=== PATIENT | male | born 1970 | race Caucasian/White ===

== ENCOUNTER → 2018-06-07 12:53 | Outpatient (CLI) | payer BC, SELFPAY | PROVIDERS: Family Provider Family Medicine; PCP Family Medicine; Visit Provider Internal Medicine Cardiovascular Disease | DX: I25.10 Atherosclerotic heart disease of native coronary artery without angina pectoris (principal); I25.2 Old myocardial infarction; I25.5 Ischemic cardiomyopathy; Z98.61 Coronary angioplasty status | CPT/HCPCS: 93306 ==

== ENCOUNTER → 2019-02-12 | Outpatient (CLI) | payer BC, SELFPAY ==
[2019-02-12 15:45] VITALS: BMI 35.4
--- NOTE | 2019-02-12 16:46 | RAD_ITS ---
STUDY: X-RAY CHEST REASON FOR EXAM: Male, 48 years old. Pain TECHNIQUE: COMPARISON: None. FINDINGS: The lungs are clear and expanded. There is no demonstrated pleural abnormality. Normal size heart. Normal mediastinum and graciela. Normal visualized pulmonary arteries. Normal visualized aortic arch and descending thoracic aorta. Normal visualized thoracic spine. Surgical fusion of the visualized cervical levels. Normal visualized ribs, clavicles, and shoulders. There is no demonstrated abnormality of the visualized soft tissue structures of the upper abdomen. RAD/Chest PA and Lateral IMPRESSION: Normal x-ray examination of the chest. Electronically Signed: Carlos Fowler DO at 23:50 EDT Tel [phone], Service support ,
[2019-02-12 17:27] LABS: Absolute Lymphocyte Count 2.35 X10^3/ul (0.83-4.51); Absolute Neutrophil Count 4.7 X10^3/uL (2.0-7.7); Basophil# 0.04 X10^3/uL; Basophil% 0.5 % (0-1); Eosinophil# 0.26 X10^3/uL; Eosinophils% 3.1 % (0-5); Hematocrit 45.5 % (40-54); Hemoglobin 15.6 g/dl (13.0-16.5); Lymphocyte # 2.35 X10^3/ul (4.0); Lymphocyte % 28.1 % (19-41); Mean Corp Hgb Conc 34.3 g/gl (32-36); Mean Corpuscular Hgb 31.2 pg (27.0-32.0); Mean Platelet Vol. 10.1 fl (6.2-12.0); Monocyte# 0.97 X10^3/uL; Monocyte% 11.6 % (0-10); Neutrophil # 4.66 X10^3/uL (2.7-7.7); Neutrophil % 55.6 % (47-70); POSITIVE COUNT NO; POSITIVE DIFFERENTIAL NO; POSITIVE MORPHOLOGY NO; Platelet Count 198 K/mm3 (150-450); RBC Distribution Width CV 13.2 % (11.6-14.6); RBC Distribution Width SD 43.6 fl (35.1-43.9); White Blood Count 8.4 K/mm3 (4.4-11.0)
[2019-02-12 17:54] LABS: BNP,B-Type NATRIURETIC PEPTIDE 10.8 pg/mL (0-100)
[2019-02-12 17:58] LABS: Anion Gap 2 (5-15); BUN 10 mg/dL (7-18); BUN/Creat Ratio 12.2 RATIO (10-20); Chloride 109 mmol/L (98-107); Creatinine, Serum 0.82 mg/dL (0.70-1.30); EST Glomerular Filtration Rate 106 mL/min (>60); Est Glom Filt Rate - Afr Amer 129 mL/min (>60); Glucose 106 mg/dL (74-106); Potassium 3.7 mmol/L (3.5-5.1); Sodium Level 140 mmol/L (136-145); Thyroid Stim Hormone (TSH) 1.77 uIU/mL (0.358-3.74)
== END | disposition home or self-care (01) ==
PROVIDERS: Family Provider Family Medicine; PCP Family Medicine; Referring Provider Physician Assistant Medical; Visit Provider Physician Assistant Medical
DX: I25.5 Ischemic cardiomyopathy (principal); I25.10 Atherosclerotic heart disease of native coronary artery without angina pectoris; E78.5 Hyperlipidemia, unspecified; R06.09 Other forms of dyspnea; R53.83 Other fatigue
CPT/HCPCS: 36415; 71046; 80048; 83880; 84443; 85025

== ENCOUNTER → 2019-02-19 | Outpatient (CLI) | payer BC, SELFPAY ==
[2019-02-12 15:45] VITALS: BMI 35.4
--- NOTE | 2019-02-19 06:10 | ECHOD_ITS ---
Reason For Study: Dyspnea/SOB Procedure This was a 2D Doppler, Color Flow transthoracic echocardiogram. The exam was of adequate technical quality. Exam performed in department. Left Ventricle Borderline enlarged left ventricle. Mild segmental systolic dysfunction (see wall motion). The estimated ejection fraction is 50 %. No evidence for diastolic dysfunction. Infero-Basal: Hypokinetic. Mid-Posterior: Hypokinetic. Mid-Inferior: Hypokinetic. Right Ventricle Normal RV size. Normal systolic function. Atria Normal left atrium. Normal right atrium. No doppler evidence for ASD. Mitral Valve There is no mitral annular calcification. Normal mitral valve. Trivial mitral valve insufficiency. Tricuspid Valve Normal tricuspid valve. Trivial tricuspid valve insufficiency. Aortic Valve Trisinus/trileaflet aortic valve. Normal aortic valve. Pulmonic Valve The pulmonic valve is not well visualized. Great Vessels Normal sized aortic root. Pericardium/Pleural No pericardial effusion. MMode/2D Measurements & Calculations LVIDd: 5.3 cm IVSd: 0.87 cm Ao root diam: 3.8 cm LVIDs: 3.9 cm LVPWd: 1.2 cm LA dimension: 3.5 cm RVDd: 3.8 cm FS: 25.5 % LAV(MOD-bp): 55.6 ml LVAd ap4: 37.3 cm2 SV(MOD-sp4): 71.4 ml LAV(MOD-bp) Indexed: 24.9 ml/m2 EDV(MOD-sp4): 141.3 ml LAV(MOD-sp2): 62.1 ml EDV(sp4-el): 143.9 ml LAV(MOD-sp4): 47.5 ml LVAs ap4: 23.8 cm2 ESV(MOD-sp4): 69.9 ml ESV(sp4-el): 69.5 ml EF(MOD-sp4): 50.5 % EF(sp4-el): 51.7 % SV(sp4-el): 74.4 ml LA A4 area: 18.1 cm2 RA A4 area: 15.7 cm2 Time Measurements MV dec time: 0.09 sec Doppler Measurements & Calculations MV E max kevan: 84.1 cm/sec Lat Peak E' Kevan: 12.1 cm/sec Med Peak E' Kevan: 46.5 cm/sec MV A max kevan: 58.5 cm/sec E/E' lat: 7.0 E/E' med: 1.8 MV E/A: 1.4 MV V2 max: 88.6 cm/sec MV P1/2t max kevan: 88.0 cm/sec Ao V2 max: 118.1 cm/sec MV max P.1 mmHg MV P1/2t: 62.5 msec Ao max P.6 mmHg MV V2 mean: 52.9 cm/sec Ao V2 mean: 84.8 cm/sec MV mean P.3 mmHg MV dec slope: 412.4 cm/sec2 Ao mean P.2 mmHg MV V2 VTI: 26.1 cm MVA(P1/2t): 3.5 cm2 Ao V2 VTI: 25.3 cm LV V1 max: 74.3 cm/sec PA V2 max: 125.2 cm/sec LV V1 max P.2 mmHg LV V1 mean P.2 mmHg LV V1 mean: 51.7 cm/sec LV V1 VTI: 15.8 cm Interpretation Summary Borderline enlarged left ventricle. Mild segmental systolic dysfunction (see wall motion). The estimated ejection fraction is 50 %. Trivial mitral valve insufficiency. Trivial tricuspid valve insufficiency. No evidence for diastolic dysfunction. Ordering Physician: Shamar^Ruba Referring Physician: Ruba Ibanez Performed By: Eleazar Delarosa RCS
--- NOTE | 2019-02-19 10:18 | STRESSREP_ITS ---
Stress Test Report Date: 02-19-19 Procedure: Exercise tolerance test/imaging study Indications: Chest pain; shortness of breath/dyspnea; CAD; PCI Consent: Per the patient Procedure: The patient exercised on a Brian protocol for 11 minutes completing Stage III and 2 minutes of Stage IV achieving a peak heart rate of 145 bpm (85 % predicted maximal heart rate) with a peak blood pressure 170/70 mmHg and a peak MET capacity of 13 METs. The baseline ECG demonstrated normal sinus rhythm; nonspecific ST/T wave abnormality. The peak exercise ECG demonstrated continued nonspecific ST/T wave abnormality. There were occasional PVCs during exercise and recovery; occasional ventricular couplets during recovery; rare ventricular triplets during recovery; int ermittent ventricular bigeminy during recovery. The functional capacity was considered good. There was no complaint of chest discomfort during exercise or recovery. The examination was discontinued secondary to dyspnea. Impression: 1. Technically adequate (percent predicted maximal heart rate greater than 85%) exercise tolerance test 2. Peak exercise ECG continued nonspecific ST/T wave abnormality 3. There were occasional PVCs during exercise and recovery; occasional ventricular couplets during recovery; rare ventricular triplets during recovery; intermittent ventricular bigeminy during recovery 4. Nuclear images pending Myocardial perfusion imaging study: Technique: The patient was injected with 14.5 mCi of technetium 99m Cardiolite and subsequently rest SPECT Cardiolite nuclear imaging was obtained in the horizontal long, vertical long, and short axis views. The patient exercised on a Brian protocol for 11 minutes completing Stage III and 2 minutes of Stage IV achieving a peak heart rate of 145 bpm (85 % predicted maximal heart rate) with a peak blood pressure 170/70 mmHg and a peak MET capacity of 13 METs. The patient was injected with 44.7 mCi of technetium 99m Cardiolite and subsequently stress SPECT Cardiolite nuclear imaging was obtained in the horizontal long, vertical long, and short axis views. A gated Cardiolite study at peak stress was obtained. Interpretation: Rest and stress SPECT Cardiolite nuclear imaging status post realignment, normalization, and attenuation correction, demonstrates the appearance of extracardiac/gastrointestinal tracer uptake being more prominent at rest as opposed to stress. At rest and stress there is notation of diminished tracer uptake in portions of the basal inferior septal/basal inferior segments without significant change. Status post stress there is notation of diminished tracer uptake in portions of the mid inferior segments.. There is diminished and systolic thickening and brightening in the aforementioned areas. The gated Cardiolite study demonstrates diminished myocardial thickening and inward wall motion in the aforementioned areas. The reported LVEF is 48 %. Impression: 1. Rest and stress SPECT Cardiolite nuclear imaging demonstrate myocardial perfusion changes potentially compatible with the effects of soft tissue attenuation/artifact and/or gastrointestinal tracer uptake/retraction involving portions of the basal inferior septal and basal inferior segments, however, there are additional myocardial perfusion changes status post stress in the mid inferior areas concerning for an area of stress-induced myocardial ischemia. 2. The gated Cardiolite study reports an LVEF of 48 %. This note was generated with Education Every[employer] software. It may contain incorrect words, spelling, and punctuation that were not noted in checking the note before signing.
== END | disposition home or self-care (01) ==
LOC: CVS 06:09
PROVIDERS: Family Provider Family Medicine; PCP Family Medicine; Referring Provider Physician Assistant Medical; Visit Provider Physician Assistant Medical
DX: I25.10 Atherosclerotic heart disease of native coronary artery without angina pectoris (principal); I25.5 Ischemic cardiomyopathy; E78.5 Hyperlipidemia, unspecified; R06.09 Other forms of dyspnea; R53.83 Other fatigue
CPT/HCPCS: 78452; 93017; 93306; A9500; A4216

== ENCOUNTER 2019-02-20 06:41 | Day surgery (SDC) | payer BC, SELFPAY ==
[2019-02-12 15:45] VITALS: BMI 35.4
[2019-02-19 14:16] VITALS: BMI 35.4
[2019-02-20 07:08] LABS: International Normalized Ratio 1.1; Prothrombin Time (Protime)PT. 13.7 SECONDS (11.7-14.9)
[2019-02-20 07:09] LABS: Partial Thromboplast Time 29.2 Seconds (24.1-36.2)
--- NOTE | 2019-02-20 07:41 | PCM.HP.BLA ---
Problem List (1) Chest pain Status: Acute (2) Abnormal stress test Status: Acute (3) CAD (coronary artery disease) Status: Chronic Qualifiers: Coronary Disease-Associated Artery/Lesion type: platinum artery (4) Ischemic cardiomyopathy Status: Chronic (5) Presence of stent in coronary artery Status: Chronic Comment: PTCA/ALON x2 of the RCA 09/14/12 (6) Hyperlipidemia Status: Chronic Qualifiers: History and Physical Date of Admission: 02/20/19 HPI Details: This is a 48-year-old gentleman that presents here today for an urgent appointment. He has a history of coronary artery disease with remote stenting to his RCA, ischemic cardiomyopathy and hyperlipidemia. Pt sts that over the last month he has noted chest discomfort. He notes that he has shoulder discomfort with this. He also notes that when he is driving he has arm pain/ numbness and leg numbness. He also notes that he is more fatigued and has not been feeling over the last month. He does have some dizziness. He does have headaches. He has not had any syncope. He does have some edema, this is newer. It has gotten better and does improve after he has slept. 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 Accompanied by: Is patient in pain?: No Allergies No Known Allergies Allergy (Verified 02/12/19 15:49) Medications Aspirin [Aspirin, Baby] 81 mg PO DAILY@0800 10/24/13 [History Confirmed 02/12/19] Nitroglycerin [Nitrostat] 0.4 mg SUBLINGUAL Q5M PRN 10/24/13 [History Confirmed 02/12/19] atorvastatin 40 mg tablet 40 mg PO QDAY #90 tab 12/13/18 [Rx Confirmed 02/12/19] carvedilol 3.125 mg tablet 3.125 mg PO DAILY #180 tab 01/31/19 [Rx Confirmed 02/12/19] Ejection fraction %: 55 to 59 PFSH Medical History Ischemic cardiomyopathy (Chronic) Hyperlipidemia (Chronic) Old myocardial infarction (Acute ~2011) Atherosclerotic heart disease of platinum coronary artery without angina pectoris (Chronic) Surgical History Presence of stent in coronary artery (Chronic ~09/14/12) Postsurgical percutaneous transluminal coronary angioplasty (PTCA) status (Chronic ~09/14/12) History of spinal surgery (Chronic ~2013) Vocal cord polyp (Resolved) Family History Father CAD (coronary artery disease) Myocardial infarction, Onset Age: 50 Diabetes Uncle CAD (coronary artery disease) Myocardial infarction, Onset Age: 50 Grandfather CAD (coronary artery disease) Myocardial infarction, Onset Age: 44 Uncle Heart disease 2 heart transplants Social History Smoking Status: Current every day smoker tobacco type: cigars per week: 28 alcohol intake: former year quit: 2006 details: Heavy drinker in the past substance use type: does not use caffeine: Yes Type: coffee Number of servings: 1 ROS Const Const: Positive for fatigue; negative for weakness, fever(s) or headache(s) Eyes Eyes: Negative for blind spots, loss of peripheral vision or transient loss of vision ENT ENT: Negative for headache(s), dizziness, tinnitus or Nosebleed/epistaxis Cardio Chest Pain: Yes Palpitations: No Edema: None Muscle aches with walking: None Resp Respiratory: Positive for SOB with activity; negative for SOB at rest, SOB orthopnea\SOB lying down or Cough GI GI: Negative nausea, vomiting, heartburn or vomiting blood/hematemesis : Negative for hematuria Musc Musc: Negative for muscle aches/ myalgia Neuro Neuro: Negative for dizziness, lightheadedness, near syncope, syncope, orthostatic symptoms, headache(s) or weakness [place] Hematologic/Lymphatic: Negative for easy bleeding Endo Endo: Positive for fatigue Cardiology Exam Const Appearance: cooperative, no acute distress and well developed Orientation: alert, awake and oriented x3 Head Head: normocephalic and atraumatic Mouth: moist mucous membranes Eyes General: appearance normal, both eyes and all related structures Conjunctivae: conjunctivae normal Pupils: PERRL EOM: EOM intact bilaterally Neck Neck: normal visual inspection, no lymphadenopathy and no JVD Carotids: Negative bruit Neck Mass: Negative Neck mass Chest Chest inspection: normal inspection of the chest and symmetric chest movement Auscultation: Bilateral: Clear to Auscultation Cardio Palpation: normal PMI Rate: regular rate Rhythm: regular rhythm Heart sounds: S1 normal and S2 normal; negative rub, gallop or murmur GI GI: normal to inspection, soft, no hepatosplenomegaly and bowel sounds present; negative tender Neuro General: alert, awake, oriented x3, CN's II-XI intact bilaterally and moves all extremities Extremities Pulses: Normal: Right Posterior Tibial Pulse, Left Posterior Tibial Pulse, Right Radial Pulse, Left Radial Pulse Lower Extremity Edema: None: Bilateral Psych Psychological: normal affect Assessment & Plan 1. Atherosclerosis of platinum coronary artery of platinum heart without angina pectoris I25.10 Plan With patient's concern over chest pain and shortness of breath will obtain a stress test to evaluate for underlying ischemia. Orders Orders: 12 Lead EKG performed by [facility] 02/12/19 Basic Metabolic Profile (BMP) 02/12/19 Thyroid Stim Hormone (TSH) 02/12/19 CBC W/Diff, Automated 02/12/19 BNP,B-Type NATRIURETIC PEPTIDE 02/12/19 Echo Complete 02/12/19 Nuclear Stress Test - Treadmil 02/12/19 Chest PA and Lateral 02/12/19 2. Hyperlipidemia, unspecified hyperlipidemia type E78.5 Plan Patient will continue with current moderate intensity statin. Orders Orders: 12 Lead EKG performed by [facility] 02/12/19 Basic Metabolic Profile (BMP) 02/12/19 Thyroid Stim Hormone (TSH) 02/12/19 CBC W/Diff, Automated 02/12/19 BNP,B-Type NATRIURETIC PEPTIDE 02/12/19 Echo Complete 02/12/19 Nuclear Stress Test - Treadmil 02/12/19 Chest PA and Lateral 02/12/19 3. Cardiomyopathy, ischemic I25.5 Plan With patient's history of cardiomyopathy will obtain an echocardiogram to reevaluate his shortness of breath, chest pain and fatigue. We will also obtain a chest x-ray. Orders Orders: 12 Lead EKG performed by [facility] 02/12/19 Basic Metabolic Profile (BMP) 02/12/19 Thyroid Stim Hormone (TSH) 02/12/19 CBC W/Diff, Automated 02/12/19 BNP,B-Type NATRIURETIC PEPTIDE 02/12/19 Echo Complete 02/12/19 Nuclear Stress Test - Treadmil 02/12/19 Chest PA and Lateral 02/12/19 4. Dyspnea on exertion R06.09 Plan Obtaining a chest x-ray and labs, echocardiogram and stress test to evaluate for patient's shortness of breath, chest pain and fatigue. Orders Orders: 12 Lead EKG performed by [facility] 02/12/19 Basic Metabolic Profile (BMP) 02/12/19 Thyroid Stim Hormone (TSH) 02/12/19 CBC W/Diff, Automated 02/12/19 BNP,B-Type NATRIURETIC PEPTIDE 02/12/19 Echo Complete 02/12/19 Nuclear Stress Test - Treadmil 02/12/19 5. Fatigue, unspecified type R53.83 Plan Obtaining labs, stress test and echocardiogram. Orders Orders: 12 Lead EKG performed by [facility] 02/12/19 Basic Metabolic Profile (BMP) 02/12/19 Thyroid Stim Hormone (TSH) 02/12/19 CBC W/Diff, Automated 02/12/19 BNP,B-Type NATRIURETIC PEPTIDE 02/12/19 Echo Complete 02/12/19 Nuclear Stress Test - Treadmil 02/12/19 Plan Detail Other Orders Orders: Chest PA and Lateral 02/12/19 R06.00 Additional Comments Thank you for allowing us to participate in patient's plan of care, if you have any questions please do not hesitate to call. This note was generated using a voice recognition system and there may be incorrect words, spelling or punctuation errors that were not noted when reviewing the office note prior to saving. Follow Up 02/14/19 (keep as is) Coding Level of Care Code Off vis,est,level 3 Diagnoses Atherosclerosis of platinum coronary artery of platinum heart without angina pectoris I25.10 ??[place] vs. transplanted heart: platinum heart Hyperlipidemia, unspecified hyperlipidemia type E78.5 ??Hyperlipidemia type: unspecified Cardiomyopathy, ischemic I25.5 Dyspnea on exertion R06.09 Fatigue, unspecified type R53.83 ??Fatigue type: unspecified Coding Level of Care Code Off vis,est,level 3 Diagnoses Atherosclerosis of platinum coronary artery of platinum heart without angina pectoris I25.10 ??[place] vs. transplanted heart: platinum heart Hyperlipidemia, unspecified hyperlipidemia type E78.5 ??Hyperlipidemia type: unspecified Cardiomyopathy, ischemic I25.5 Dyspnea on exertion R06.09 Fatigue, unspecified type R53.83 ??Fatigue type: unspecified Supplemental Info Supplemental Information Echocardiogram in January 2018 demonstrated:Segmental dysfunction with preserved ejection fraction (see wall motion). The estimated ejection fraction is 55 %. Trivial mitral valve insufficiency. Trivial tricuspid valve insufficiency. Mild (1+) pulmonic valve insufficiency. Transmitral doppler flow suggestive of impaired relaxation of left ventricle Diagnostics Electrocardiogram 02/12/19 Echocardiogram 06/07/18 Chest X-Ray 02/12/19 I have examined the patient the following changes are noted: The patient has undergone further evaluation with a transthoracic echocardiogram and a stress nuclear imaging study. The transthoracic echocardiogram demonstrated left ventricular regional wall motion abnormalities with an estimated LVEF of approximately 50%. The stress nuclear imaging study demonstrated concerns of stress-induced myocardial ischemia. The patient's case was reviewed. The patient was recommended for further evaluation with diagnostic cardiac catheterization. The procedure and risks were discussed with the patient and he was agreeable to this approach. This is scheduled to be performed on 5 minutes ??19.
--- NOTE | 2019-02-20 07:46 | HP.PCM_ITS ---
Problem List (1) Chest pain Status: Acute (2) Abnormal stress test Status: Acute (3) CAD (coronary artery disease) Status: Chronic Qualifiers: Coronary Disease-Associated Artery/Lesion type: [place] artery (4) Ischemic cardiomyopathy Status: Chronic (5) Presence of stent in coronary artery Status: Chronic Comment: PTCA/ALON x2 of the RCA 09/14/12 (6) Hyperlipidemia Status: Chronic Qualifiers: History and Physical Date of Admission: 02/20/19 HPI Details: This is a 48-year-old gentleman that presents here today for an urgent appointment. He has a history of coronary artery disease with remote stenting to his RCA, ischemic cardiomyopathy and hyperlipidemia. Pt sts that over the last month he has noted chest discomfort. He notes that he has shoulder discomfort with this. He also notes that when he is driving he has arm pain/ numbness and leg numbness. He also notes that he is more fatigued and has not been feeling over the last month. He does have some dizziness. He does have headaches. He has not had any syncope. He does have some edema, this is newer. It has gotten better and does improve after he has slept. Intake Vital Signs 02/12/19 Height 5 ft 9 in 02/12/19 Weight: 240 lb 02/12/19 Body Mass Index (BMI) 35.4 02/12/19 Blood Pressure 112/74 02/12/19 Blood Pressure Location Lt brachial 02/12/19 Blood Pressure Position Sitting 02/12/19 Respiratory Rate 16 02/12/19 Pulse Rate 76 02/12/19 Pulse Source Monitor Intake Visit Reasons: CP Fowl Blood Tester Required: No Accompanied by: Is patient in pain?: No Allergies No Known Allergies Allergy (Verified 02/12/19 15:49) Medications Aspirin [Aspirin, Baby] 81 mg PO DAILY@0800 10/24/13 [History Confirmed 02/12/19] Nitroglycerin [Nitrostat] 0.4 mg SUBLINGUAL Q5M PRN 10/24/13 [History Confirmed 02/12/19] atorvastatin 40 mg tablet 40 mg PO QDAY #90 tab 12/13/18 [Rx Confirmed 02/12/19] carvedilol 3.125 mg tablet 3.125 mg PO DAILY #180 tab 01/31/19 [Rx Confirmed 02/12/19] Ejection fraction %: 55 to 59 PFSH Medical History Ischemic cardiomyopathy (Chronic) Hyperlipidemia (Chronic) Old myocardial infarction (Acute ~2011) Atherosclerotic heart disease of [place] coronary artery without angina pectoris (Chronic) Surgical History Presence of stent in coronary artery (Chronic ~09/14/12) Postsurgical percutaneous transluminal coronary angioplasty (PTCA) status (Chronic ~09/14/12) History of spinal surgery (Chronic ~2013) Vocal cord polyp (Resolved) Family History Father CAD (coronary artery disease) Myocardial infarction, Onset Age: 50 Diabetes Uncle CAD (coronary artery disease) Myocardial infarction, Onset Age: 50 Grandfather CAD (coronary artery disease) Myocardial infarction, Onset Age: 44 Uncle Heart disease 2 heart transplants Social History Smoking Status: Current every day smoker tobacco type: cigars per week: 28 alcohol intake: former year quit: 2006 details: Heavy drinker in the past substance use type: does not use caffeine: Yes Type: coffee Number of servings: 1 ROS Const Const: Positive for fatigue; negative for weakness, fever(s) or headache(s) Eyes Eyes: Negative for blind spots, loss of peripheral vision or transient loss of vision ENT ENT: Negative for headache(s), dizziness, tinnitus or Nosebleed/epistaxis Cardio Chest Pain: Yes Palpitations: No Edema: None Muscle aches with walking: None Resp Respiratory: Positive for SOB with activity; negative for SOB at rest, SOB orthopnea\SOB lying down or Cough GI GI: Negative nausea, vomiting, heartburn or vomiting blood/hematemesis : Negative for hematuria Musc Musc: Negative for muscle aches/ myalgia Neuro Neuro: Negative for dizziness, lightheadedness, near syncope, syncope, orthostatic symptoms, headache(s) or weakness [place] Hematologic/Lymphatic: Negative for easy bleeding Endo Endo: Positive for fatigue Cardiology Exam Const Appearance: cooperative, no acute distress and well developed Orientation: alert, awake and oriented x3 Head Head: normocephalic and atraumatic Mouth: moist mucous membranes Eyes General: appearance normal, both eyes and all related structures Conjunctivae: conjunctivae normal Pupils: PERRL EOM: EOM intact bilaterally Neck Neck: normal visual inspection, no lymphadenopathy and no JVD Carotids: Negative bruit Neck Mass: Negative Neck mass Chest Chest inspection: normal inspection of the chest and symmetric chest movement Auscultation: Bilateral: Clear to Auscultation Cardio Palpation: normal PMI Rate: regular rate Rhythm: regular rhythm Heart sounds: S1 normal and S2 normal; negative rub, gallop or murmur GI GI: normal to inspection, soft, no hepatosplenomegaly and bowel sounds present; negative tender Neuro General: alert, awake, oriented x3, CN's II-XI intact bilaterally and moves all extremities Extremities Pulses: Normal: Right Posterior Tibial Pulse, Left Posterior Tibial Pulse, Right Radial Pulse, Left Radial Pulse Lower Extremity Edema: None: Bilateral Psych Psychological: normal affect Assessment & Plan 1. Atherosclerosis of [place] coronary artery of [place] heart without angina pectoris I25.10 Plan With patient's concern over chest pain and shortness of breath will obtain a stress test to evaluate for underlying ischemia. Orders Orders: 12 Lead EKG performed by [facility] 02/12/19 Basic Metabolic Profile (BMP) 02/12/19 Thyroid Stim Hormone (TSH) 02/12/19 CBC W/Diff, Automated 02/12/19 BNP,B-Type NATRIURETIC PEPTIDE 02/12/19 Echo Complete 02/12/19 Nuclear Stress Test - Treadmil 02/12/19 Chest PA and Lateral 02/12/19 2. Hyperlipidemia, unspecified hyperlipidemia type E78.5 Plan Patient will continue with current moderate intensity statin. Orders Orders: 12 Lead EKG performed by [facility] 02/12/19 Basic Metabolic Profile (BMP) 02/12/19 Thyroid Stim Hormone (TSH) 02/12/19 CBC W/Diff, Automated 02/12/19 BNP,B-Type NATRIURETIC PEPTIDE 02/12/19 Echo Complete 02/12/19 Nuclear Stress Test - Treadmil 02/12/19 Chest PA and Lateral 02/12/19 3. Cardiomyopathy, ischemic I25.5 Plan With patient's history of cardiomyopathy will obtain an echocardiogram to reevaluate his shortness of breath, chest pain and fatigue. We will also obtain a chest x-ray. Orders Orders: 12 Lead EKG performed by [facility] 02/12/19 Basic Metabolic Profile (BMP) 02/12/19 Thyroid Stim Hormone (TSH) 02/12/19 CBC W/Diff, Automated 02/12/19 BNP,B-Type NATRIURETIC PEPTIDE 02/12/19 Echo Complete 02/12/19 Nuclear Stress Test - Treadmil 02/12/19 Chest PA and Lateral 02/12/19 4. Dyspnea on exertion R06.09 Plan Obtaining a chest x-ray and labs, echocardiogram and stress test to evaluate for patient's shortness of breath, chest pain and fatigue. Orders Orders: 12 Lead EKG performed by [facility] 02/12/19 Basic Metabolic Profile (BMP) 02/12/19 Thyroid Stim Hormone (TSH) 02/12/19 CBC W/Diff, Automated 02/12/19 BNP,B-Type NATRIURETIC PEPTIDE 02/12/19 Echo Complete 02/12/19 Nuclear Stress Test - Treadmil 02/12/19 5. Fatigue, unspecified type R53.83 Plan Obtaining labs, stress test and echocardiogram. Orders Orders: 12 Lead EKG performed by [facility] 02/12/19 Basic Metabolic Profile (BMP) 02/12/19 Thyroid Stim Hormone (TSH) 02/12/19 CBC W/Diff, Automated 02/12/19 BNP,B-Type NATRIURETIC PEPTIDE 02/12/19 Echo Complete 02/12/19 Nuclear Stress Test - Treadmil 02/12/19 Plan Detail Other Orders Orders: Chest PA and Lateral 02/12/19 R06.00 Additional Comments Thank you for allowing us to participate in patient's plan of care, if you have any questions please do not hesitate to call. This note was generated using a voice recognition system and there may be incorrect words, spelling or punctuation errors that were not noted when reviewing the office note prior to saving. Follow Up 02/14/19 (keep as is) Coding Level of Care Code Off vis,est,level 3 Diagnoses Atherosclerosis of [place] coronary artery of [place] heart without angina pectoris I25.10 ??[place] vs. transplanted heart: [place] heart Hyperlipidemia, unspecified hyperlipidemia type E78.5 ??Hyperlipidemia type: unspecified Cardiomyopathy, ischemic I25.5 Dyspnea on exertion R06.09 Fatigue, unspecified type R53.83 ??Fatigue type: unspecified Coding Level of Care Code Off vis,est,level 3 Diagnoses Atherosclerosis of [place] coronary artery of [place] heart without angina pectoris I25.10 ??[place] vs. transplanted heart: [place] heart Hyperlipidemia, unspecified hyperlipidemia type E78.5 ??Hyperlipidemia type: unspecified Cardiomyopathy, ischemic I25.5 Dyspnea on exertion R06.09 Fatigue, unspecified type R53.83 ??Fatigue type: unspecified Supplemental Info Supplemental Information Echocardiogram in January 2018 demonstrated:Segmental dysfunction with preserved ejection fraction (see wall motion). The estimated ejection fraction is 55 %. Trivial mitral valve insufficiency. Trivial tricuspid valve insufficiency. Mild (1+) pulmonic valve insufficiency. Transmitral doppler flow suggestive of impaired relaxation of left ventricle Diagnostics Electrocardiogram 02/12/19 Echocardiogram 06/07/18 Chest X-Ray 02/12/19 I have examined the patient the following changes are noted: The patient has undergone further evaluation with a transthoracic echocardiogram and a stress nuclear imaging study. The transthoracic echocardiogram demonstrated left ventricular regional wall motion abnormalities with an estimated LVEF of approximately 50%. The stress nuclear imaging study demonstrated concerns of stress-induced myocardial ischemia. The patient's case was reviewed. The patient was recommended for further evaluation with diagnostic cardiac catheterization. The procedure and risks were discussed with the patient and he was agreeable to this approach. This is scheduled to be performed on 5 minutes ??19.
--- NOTE | 2019-02-20 09:53 | CL.D_ITS ---
Patient Name: ANDREW BROOKS Study Date: 02/20/2019 Performing: Fernando Wilkinson MD Ht: 68.89 inches 175 cm : 1970 Wt: 240.3 lbs 109 kg Age: 48 Gender: male BSA: 2.23 PROCEDURE(S) PERFORMED [id number]-DTJ/COR/LV CLINICAL PROFILE AND INDICATIONS Indications: Suspected CAD, LV Dysfunction, Cardiomyopathy Heart Failure: None Stress/Imaging Date: 02/19/2019Stress Test with SPECT MPI: Positive Angina Classification Anginal Classification w/in 2 Weeks: CCS II CAD Presentations: Stable angina. CONCLUSIONS Elevated Left Ventricular End Diastolic Pressure Segmented LV systolic dysfunction- Mild LVEF: by LV gram 45 % RCA: PCI site: Patent RECOMMENDATIONS Risk factor modification Medical therapy DESCRIPTION OF PROCEDURE The patient arrived to the procedure lab. The risks and benefits of the procedure as well as a full d escription of our services here and current unavailability of surgical backup were fully explained to the patient and/or their significant other prior to the catheterization. The Timeout was completed, verifying the correct patient and procedure. The patient's procedural site was prepped and draped in the usual fashion. Local anesthetic was given subcutaneously to right groin region with Lidocaine 2%. Using a modified Seldinger technique, arterial access was obtained via the right femoral artery, a 4 Fr sheath was inserted Left Coronary Artery selective angiography was performed in multiple views us ing a 4 Fr. JL5 catheter. Right Coronary Artery selective angiography was then performed in multiple views using a 4 Fr. 3DRC catheter. Left Ventriculography was performed in [place] projection using a 4 Fr . Pigtail catheter. LV to AO pullback pressures were then recorded.The arterial sheath was pulled and manual compression applied until hemostasis is achieved. CORONARY ANGIOGRAPHY LEFT HEART ASSESSMENT Left Ventricular Ejection Fraction: by LV Gram 45 % Inferior Basal Hypokinesis. Inferior Mid Akinesis. Inferior Apical Hypokinesis Elevated Left Ventricular End Diastolic Pressure LEFT MAIN: Angiographically normal LEFT ANTERIOR DESCENDING ARTERY: Angiographically normal CIRCUMFLEX ARTERY: PROX CIRC: Mild luminal irregularities OM 1: Ostial - short small caliber vessel: 50 % Stenosis RAMUS: Angiographically normal RIGHT CORONARY ARTERY: PROX RCA: Previously placed stent is patent MID RCA: Previously placed stent is patent VALVE FINDINGS: Normal Aortic Valve function Normal Mitral Valve function AORTIC ROOT: Angiographically normal COMPLICATIONS No Complications PROCEDURE MEDICATIONS Versed 1 mg IV Oxygen: 2 L/min via nasal cannula SUMMARY OF HEMODYNAMIC DATA Time AIR REST ECG 07:10:18 AO 129/63 (85) SA 08:33:05 LV 122/8, 28 08:53:16 LV 122/8, 26 08:53:23 LV 122/8, 35 08:54:16 LV 124/6, 30 08:54:23 LVp 119/4, 26 08:54:44 AOp 132/72 (94) 08:54:49 RM AIR REST 09:25:16 Signed By Fernando Wilkinson MD On 02/20/2019 09:52:40 Fernando Wilkinson MD
== END 2019-02-20 13:30 | disposition home or self-care (01) ==
PROVIDERS: Family Provider Family Medicine; PCP Family Medicine; Referring Provider Internal Medicine Cardiovascular Disease; Visit Provider Internal Medicine Cardiovascular Disease
DX: I25.10 Atherosclerotic heart disease of native coronary artery without angina pectoris (principal); R94.39 Abnormal result of other cardiovascular function study; I25.5 Ischemic cardiomyopathy; E78.5 Hyperlipidemia, unspecified; I25.2 Old myocardial infarction; Z95.5 Presence of coronary angioplasty implant and graft; Z79.82 Long term (current) use of aspirin; Z79.899 Other long term (current) drug therapy; F17.290 Nicotine dependence, other tobacco product, uncomplicated
CPT/HCPCS: 36415; 85610; 85730; 93458; 99152; 99153; J7040; C1769; C1894; Q9967

== ENCOUNTER → 2019-02-24 | Outpatient (CLI) | payer BC, SELFPAY ==
[2019-02-19 14:16] VITALS: BMI 35.4
== END | disposition home or self-care (01) ==
LOC: PSN 10:50
PROVIDERS: Family Provider Family Medicine; PCP Family Medicine; Referring Provider Internal Medicine Cardiovascular Disease; Visit Provider Internal Medicine Cardiovascular Disease
DX: I25.10 Atherosclerotic heart disease of native coronary artery without angina pectoris (principal); I25.2 Old myocardial infarction; I25.5 Ischemic cardiomyopathy; I49.3 Ventricular premature depolarization; Z95.5 Presence of coronary angioplasty implant and graft
CPT/HCPCS: 93225; 93226

== ENCOUNTER → 2019-03-20 | Outpatient (CLI) | payer BC, SELFPAY ==
[2019-03-07 13:18] VITALS: BMI 35.2
--- NOTE | 2019-03-20 13:39 | PFT ---
INTRODUCTION: The patient is a 48-year-old male who presents for pulmonary function studies secondary to a diagnosis of shortness of breath. Respiratory therapy reports good patient effort. Bronchodilators were used during testing. INTERPRETATION: Forced expiration spirometry demonstrates no evidence of a large airways obstructive ventilatory defect. There was no significant response to aerosolized bronchodilators, based upon strict ATS criteria. The patient did have a rather robust mid flow bronchodilator response, nonetheless. Spirograms are of good quality and do not plateau indicating slow emptying of the lungs. Body plethysmography was performed and reveals lung volumes to be within normal limits. Diffusing capacity by single breath CO is also within normal limits. IMPRESSION: Subtle stigmata of possible small airways disease. Normal spirometry, lung volumes and diffusing capacity.
== END | disposition home or self-care (01) ==
LOC: PSN 06:58
PROVIDERS: Family Provider Family Medicine; PCP Family Medicine; Referring Provider Internal Medicine Cardiovascular Disease; Visit Provider Internal Medicine Cardiovascular Disease
DX: R06.02 Shortness of breath (principal)
CPT/HCPCS: 94060; 94726; 94729

== ENCOUNTER → 2019-04-14 | Outpatient (CLI) | payer BC, SELFPAY ==
[2019-04-01 10:55] VITALS: BMI 35.1
== END | disposition home or self-care (01) ==
LOC: SL 13:40
PROVIDERS: Family Provider Family Medicine; PCP Family Medicine; Referring Provider Nurse Practitioner Acute Care; Visit Provider Nurse Practitioner Acute Care
DX: G47.33 Obstructive sleep apnea (adult) (pediatric) (principal)
CPT/HCPCS: 95806

== ENCOUNTER → 2019-05-05 | Outpatient (CLI) | payer BC, SELFPAY ==
[2019-04-01 10:55] VITALS: BMI 35.1
== END | disposition home or self-care (01) ==
LOC: SL 11:01
PROVIDERS: Family Provider Family Medicine; PCP Family Medicine; Visit Provider Nurse Practitioner Acute Care
DX: G47.33 Obstructive sleep apnea (adult) (pediatric) (principal)

== ENCOUNTER → 2019-08-07 15:32 | Outpatient (CLI) | payer BC, SELFPAY ==
[2019-05-29 13:15] VITALS: BMI 35.1
== END ==
PROVIDERS: Family Provider Family Medicine; PCP Family Medicine; Referring Provider Nurse Practitioner Acute Care; Visit Provider Nurse Practitioner Acute Care
DX: G47.33 Obstructive sleep apnea (adult) (pediatric) (principal)
CPT/HCPCS: 98960; G0463

== ENCOUNTER → 2020-03-30 09:08 | Outpatient (CLI) | payer BC, SELFPAY ==
[2020-02-03 07:44] VITALS: BMI 35.7
[2020-03-30 11:07] LABS: AST(SGOT) 24 U/L (15-37); Alanine Aminotransfer ALT/SGPT 37 U/L (16-61); Albumin, Serum 3.9 g/dL (3.2-5.0); Alkaline Phosphatase 49 U/L (45-117); Bilirubin, Direct 0.21 mg/dL (0.00-0.30); Cholesterol 182 mg/dL (200); Globulin 3.5 g/dL (2.2-4.2); High Density Lipoprotein 39 mg/dL; Protein, Total 7.4 g/dL (6.4-8.2); Triglycerides 120 mg/dL; Very Low Density Lipoprotein 24 mg/dL (5-40)
== END ==
PROVIDERS: PCP Family Medicine; Referring Provider Nurse Practitioner Family; Visit Provider Nurse Practitioner Family
DX: E78.5 Hyperlipidemia, unspecified (principal); E78.00 Pure hypercholesterolemia, unspecified
CPT/HCPCS: 36415; 80061; 80076

== ENCOUNTER → 2020-12-10 12:39 | Outpatient (CLI) | payer SELFPAY ==
[2020-11-26 13:28] VITALS: BMI 32.1
--- NOTE | 2020-12-10 12:43 | ART_ITS ---
Reason For Study: Cold feet Procedure A bilateral lower extremity continuous wave Doppler with analog waveform analysis,segmental pressures,and ankle brachial indexes without exercise. Left Segmental Pressures Left brachial= 116mmHg. Left posterior tibial artery = 137mmHg. Left dorsalis pedis artery = 132mmHg. Left digit = 83 mmHg. The left dorsalis pedis waveforms are triphasic. The left posterior tibial artery waveforms are triphasic. Right Segmental Pressures Right brachial= 121mmHg. Right posterior tibial artery = 144mmHg. Right dorsalis pedis artery = 130mmHg. Right digit = 89 mmHg. The right dorsalis pedis waveforms are triphasic. The right posterior tibial artery waveforms are triphasic. Indices The right ankle brachial index by the dorsalis pedis is 1.07. The right ankle brachial index by the posterior tibial artery is 1.19. The right digital-brachial index is 0.74. The left ankle brachial index by the dorsalis pedis is 1.09. The left ankle brachial index by the posterior tibial artery is 1.13. The left digital-brachial index is 0.69. Interpretation Summary Resting ankle-brachial indices appear bilaterally normal. Normal bilateral lower extremity posterior tibialis and dorsalis pedis triphasic Doppler waveforms Borderline abnormal bilateral digital brachial indices of 0.74 on the right and 0.69 on the left. Possible temperature effect. Clinical correlation would be appropriate. Ordering Physician: Fernando Wilkinson Referring Physician: Saravanan Chavarria MD Performed By: Bety Oates RVT
== END ==
PROVIDERS: PCP Family Medicine; Referring Provider Internal Medicine Cardiovascular Disease; Visit Provider Internal Medicine Cardiovascular Disease
DX: R20.9 Unspecified disturbances of skin sensation (principal)
CPT/HCPCS: 93923

== ENCOUNTER → 2021-03-11 06:38 | Outpatient (CLI) | payer OTHER, SELFPAY ==
[2021-01-25 08:51] VITALS: BMI 31.6
[2021-03-11 10:38] LABS: AST(SGOT) 23 U/L (15-37); Alanine Aminotransfer ALT/SGPT 36 U/L (16-61); Alkaline Phosphatase 49 U/L (45-117); Bilirubin, Direct 0.15 mg/dL (0.00-0.30); Cholesterol 180 mg/dL (200); Globulin 3.3 g/dL (2.2-4.2); High Density Lipoprotein 41 mg/dL; Protein, Total 7.3 g/dL (6.4-8.2); Triglycerides 111 mg/dL; Very Low Density Lipoprotein 22 mg/dL (5-40)
--- NOTE | 2021-03-11 12:10 | STRESSREP_ITS ---
Stress Test Report Date: 03-11-2021 Procedure: Exercise tolerance test/imaging study Indications: CAD; PCI; [employer] CDL requirement Consent: Per the patient Procedure: The patient exercised on a Brian protocol for 10 minutes and 30 seconds completing Stage III and 1 minute and 30 seconds of Stage IV achieving a peak heart rate of 142 bpm (84% predicted maximal heart rate) with a peak blood pressure 150/72 mmHg and a peak MET capacity of 12 METs. The baseline ECG demonstrated sinus bradycardia. The peak exercise ECG demonstrated somatic/motion artifact with no obvious ECG changes. There was a rare to occasional PVC during exercise and recovery. The functional capacity was considered good. There was no complaint of chest discomfort during exercise or recovery. The examination was discontinued secondary to dyspnea. Impression: 1. Technically adequate (percent predicted maximal heart rate greater than 85%) exercise tolerance test 2. Peak exercise ECG with somatic/motion artifact with no obvious ECG changes 3. There was a rare to occasional PVC during exercise and recovery 4. Nuclear images pending Myocardial perfusion imaging study: Technique: The patient was injected with 14.3 mCi of technetium 99m Cardiolite and subsequently rest SPECT Cardiolite nuclear imaging was obtained in the horizontal long, vertical long, and short axis views. The patient exercised on a Brian protocol for 10 minutes and 30 seconds completing Stage III and 1 minute and 30 seconds of Stage IV achieving a peak heart rate of 142 bpm (84% predicted maximal heart rate) with a peak blood pressure 150/72 mmHg and a peak MET capacity of 12 METs. The patient was injected with 45.0 mCi of technetium 99m Cardiolite and subsequently stress SPECT Cardiolite nuclear imaging was obtained in the horizontal long, vertical long, and short axis views. A gated Cardiolite study at peak stress was obtained. Interpretation: Rest and stress SPECT Cardiolite nuclear imaging status post realignment, normalization, and attenuation correction, demonstrates the appearance at rest of relative uniform tracer uptake and following stress the appearance of diminished tracer uptake in portions of the mid inferior segments. There is diminished end systolic thickening and brightening. The gated Cardiolite study demonstrates myocardial thickening and inward wall motion. The reported LVEF is 49%. Impression: 1. Rest and stress SPECT Cardiolite nuclear imaging demonstrate myocardial perfusion changes concerning for an area of stress-induced myocardial ischemia in portions of the mid inferior segments. 2. The gated Cardiolite study reports an LVEF of 49%. This note was generated with [employer] software. It may contain incorrect words, spelling, and punctuation that were not noted in checking the note before signing.
== END ==
PROVIDERS: PCP Family Medicine; Referring Provider Internal Medicine Cardiovascular Disease; Visit Provider Internal Medicine Cardiovascular Disease
DX: I25.10 Atherosclerotic heart disease of native coronary artery without angina pectoris (principal); Z95.5 Presence of coronary angioplasty implant and graft; I25.2 Old myocardial infarction; R94.39 Abnormal result of other cardiovascular function study; E78.5 Hyperlipidemia, unspecified; E78.00 Pure hypercholesterolemia, unspecified
CPT/HCPCS: 36415; 78452; 80061; 80076; 93017; A9500; A4216

== ENCOUNTER 2021-03-23 09:52 | Observation (INO) | payer OTHER, SELFPAY ==
[2021-01-25 08:51] VITALS: BMI 31.6
[2021-03-16 15:14] VITALS: BMI 31.4
--- NOTE | 2021-03-16 16:10 | RAD_ITS ---
STUDY: X-RAY CHEST REASON FOR EXAM: Male, 50 years old. Chest pain TECHNIQUE: PA and lateral views of the chest. COMPARISON: Comparison is made with prior examination dated 02/12/2019. FINDINGS: Hyperinflation. The lungs are clear. There is no demonstrated pleural abnormality. Normal size heart. Normal mediastinum and graciela. Normal visualized pulmonary arteries. Normal visualized aortic arch and descending thoracic aorta. Normal visualized thoracic spine. Prior cervical fusion. There is no demonstrated abnormality of the visualized soft tissue structures of the upper abdomen. RAD/Chest PA and Lateral IMPRESSION: Hyperinflation. The lungs are clear. Electronically Signed: Humberto Deutsch MD at 8:53 EDT , Service support ,
[2021-03-16 17:21] LABS: Absolute Lymphocyte Count 1.56 X10^3/uL (0.83-4.51); Absolute Neutrophil Count 4.5 X10^3/uL (2.0-7.7); Basophil# 0.09 X10^3/uL; Basophil% 1.2 % (0-1); Eosinophil# 0.29 X10^3/uL; Hematocrit 45.4 % (40-54); Hemoglobin 15.1 g/dL (13.0-16.5); Lymphocyte # 1.56 X10^3/ul (0.83-4.51); Lymphocyte % 21.5 % (19-41); Mean Corp Hgb Conc 33.3 g/dL (32-36); Mean Corpuscular Hgb 30.4 pg (27.0-32.0); Mean Corpuscular Volume 91.5 fL (80-94); Mean Platelet Vol. 9.6 fl (6.2-12.0); Monocyte# 0.72 X10^3/uL; Monocyte% 9.9 % (0-10); NRBC Flagged by Analyzer 0 % (0-5); Neutrophil # 4.49 X10^3/uL (2.7-7.7); Neutrophil % 61.9 % (47-70); Platelet Count 224 K/mm3 (150-450); RBC Distribution Width SD 40.4 fl (35.1-43.9); Red Blood Count 4.96 M/mm3 (4.6-6.2); White Blood Count 7.3 K/mm3 (4.4-11.0)
[2021-03-16 18:01] LABS: Anion Gap 6 (5-15); BUN 17 mg/dL (7-18); BUN/Creat Ratio 19.9 RATIO (10-20); Calcium,Total 9.1 mg/dL (8.5-10.1); Chloride 103 mmol/L (98-107); Creatinine, Serum 0.86 mg/dL (0.70-1.30); EST Glomerular Filtration Rate 100 mL/min (>60); Est Glom Filt Rate - Afr Amer 121 mL/min (>60); Glucose 82 mg/dL (74-106); Potassium 3.9 mmol/L (3.5-5.1); Sodium Level 139 mmol/L (136-145)
[2021-03-16 18:32] LABS: International Normalized Ratio 1.1; Prothrombin Time (Protime)PT. 13.5 SECONDS (11.7-14.9)
[2021-03-16 18:33] LABS: Partial Thromboplast Time 30.1 Seconds (24.1-36.2)
[2021-03-22 08:37] VITALS: BMI 31.4
[2021-03-23] VITALS (13 sets, daily range): BP systolic 99–129; BP diastolic 63–87; PULSE 56–74; RESP 8–18; TEMP 36.4–37; O2SAT 95–100
--- NOTE | 2021-03-23 07:16 | PCM.HP.BLA ---
History and Physical Date of Admission: 03/23/21 [facility] [id number] [place], [place] [id number] OFFICE VISITDate of Service: 03/16/21 MR#:[id number]:[id number]: ANDREW BROOKS HRep #:[id number] Provider:Dr. Fernando Wilkinson, SYDNEEge/Sex: 50/M Location:Treus:Signed HPI HPI History of Present Illness Surgical H&P: Yes Details: This is a 50-year-old white male who presents today for outpatient cardiovascular follow-up with history of CAD status post RCA PTCA/stent-2011, ischemic mediated cardiomyopathy, hyperlipidemia, and MARGY for concerns of chest discomfort and an abnormal stress nuclear imaging study. He states that he has been tearing down his home in order to rebuild his home. He has been under a lot of stress. He states that he has had some chest tightness which he believes is stress related. He has not used his nitroglycerin sublingual tablets. He has not had any orthopnea or PND or peripheral pitting edema. There has been no near syncope or syncope. He recently underwent evaluation with an exercise tolerance test/imaging study. The results are noted below. It was considered abnormal. 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 Accompanied by: Self Allergies No Known Allergies Allergy (Verified 03/16/21 15:20) Medications aspirin 81 mg PO DAILY@0800 10/24/13 [History Confirmed 03/16/21] nitroglycerin 0.4 mg sublingual tablet 0.4 mg SUBLINGUAL Q5M PRN #25 tab 03/02/19 [Rx Confirmed 03/16/21] metoprolol succinate 25 mg tablet,extended release 24 hr 12.5 mg PO DAILY tab 04/14/20 [History Confirmed 03/16/21] atorvastatin 40 mg tablet 40 mg PO QDAY #90 tab 07/02/20 [Rx Confirmed 03/16/21] clopidogrel 75 mg tablet 75 mg PO DAILY #30 tab 03/16/21 [Rx Confirmed 03/16/21] [facility] Medical History (Updated 03/16/21 @ 16:[address] Fernando Wilkinson MD) Abnormal pulmonary function test Abnormal stress test Atherosclerotic heart disease of [place] coronary artery without angina pectoris BMI 34.0-34.9,adult Chest pain Cold feet Hyperlipidemia Ischemic cardiomyopathy Neuropathy Old myocardial infarction (~2011) MARGY (obstructive sleep apnea) Surgical History History of spinal surgery (~2013) Postsurgical percutaneous transluminal coronary angioplasty (PTCA) status (~09/14/12) Presence of stent in coronary artery (~09/14/12) Vocal cord polyp Family History Father CAD (coronary artery disease) Myocardial infarction, Onset Age: 50 Diabetes Uncle CAD (coronary artery disease) Myocardial infarction, Onset Age: 50 Grandfather CAD (coronary artery disease) Myocardial infarction, Onset Age: 44 Uncle Heart disease 2 heart transplants Social History Smoking Status: Former smoker alcohol intake: former year quit: 2006 details: Heavy drinker in the past substance use type: does not use caffeine: Yes Type: coffee Number of servings: 1 ROS Const Const: Negative for fatigue, weakness, frequent falls, excessive sweating, weight gain or weight loss Eyes Eyes: Negative for transient loss of vision, blurry vision or change in vision ENT ENT: Positive for balance problems (due to chronic back pain); Negative for dizziness Cardio Chest Pain: No Palpitations: No Edema: None Muscle aches with walking: None Resp Respiratory: Negative for SOB with activity or SOB at rest GI GI: Negative vomiting or vomiting blood/hematemesis : Negative for hematuria Musc Musc: Positive for muscle aches/ myalgia (chronic back pain) and balance problems (due to chronic back pain); Negative for muscle weakness or joint pain Skin Skin: Negative non-healing lesions or rash Neuro Neuro: Negative for dizziness, lightheadedness, orthostatic symptoms, frequent falls, weakness or blurry vision [place] Hematologic/Lymphatic: Negative for easy bleeding Endo Endo: Negative for fatigue or excessive sweating Psych Psych: Negative for anxiety or depression Allergy Allergy/Immunology: Negative for hives and Negative for rash Cardiology Exam Const Appearance: cooperative, healthy appearing, comfortable, no acute distress, well developed and well groomed Nutritional Appearance: overweight Orientation: alert, awake and oriented x3 Head Head: normal to inspection, normocephalic and atraumatic Ears: hearing grossly normal bilaterally Nose: external nose normal Face and Sinus: face symmetric Eyes Eyelids: eyelids normal Conjunctivae: conjunctivae normal Pupils: PERRL EOM: EOM intact bilaterally Neck Neck: normal visual inspection and full ROM Carotids: normal carotid upstroke Chest Chest inspection: normal inspection of the chest, symmetric chest movement and normal respiratory effort Auscultation: Bilateral: Clear to Auscultation Cardio Palpation: normal PMI Rate: regular rate Rhythm: regular rhythm Heart sounds: S1 normal and S2 normal GI GI: normal to inspection, soft and bowel sounds present Neuro General: patient alert, patient awake, patient oriented x3 and moves all extremities Skin Skin: no rashes or lesions noted Extremities Pulses: Normal: Right Radial Pulse and Left Radial Pulse Lower Extremity Edema: None: Bilateral Psych Psychological: normal affect Assessment and Plan Assessment and Plan (1) Atherosclerotic heart disease of [place] coronary artery without angina pectoris: Status: Chronic Qualifiers: [place] vs. transplanted heart: [place] heart Qualified Code(s): I25.10 - Atherosclerotic heart disease of [place] coronary artery without angina pectoris Orders: Orders: Left Heart Cath/COR/LV Percut Today Basic Metabolic Profile (BMP) Today Partial Thromboplast Time Today Prothrombin Time w/INR Today CBC W/Diff, Automated Today Chest PA and Lateral Today Plan - Dr. Fernando Wilkinson MD: At the present time he will continue medical therapy. Was felt that he should be reassessed in the cardiac catheterization laboratory. The procedure and risk were discussed with him. He was agreeable to this approach. (2) Postsurgical percutaneous transluminal coronary angioplasty (PTCA) status: Status: Chronic Comment: PTCA/ALON of the RCA 09/14/12 Orders: Orders: Left Heart Cath/COR/LV Percut Today Basic Metabolic Profile (BMP) Today Partial Thromboplast Time Today Prothrombin Time w/INR Today CBC W/Diff, Automated Today Chest PA and Lateral Today Plan - Dr. Fernando Wilkinson MD: He has undergone previous PCI in the past. Again he has had symptoms and an abnormal stress test. He will proceed with further evaluation with diagnostic cardiac catheterization. (3) Ischemic cardiomyopathy: Status: Chronic Orders: Orders: Left Heart Cath/COR/LV Percut Today Basic Metabolic Profile (BMP) Today Partial Thromboplast Time Today Prothrombin Time w/INR Today CBC W/Diff, Automated Today Chest PA and Lateral Today Plan - Dr. Fernando Wilkinson MD: He does have a history of an ischemic mediated cardiomyopathy. He does not appear to have any obvious CHF type symptoms at this time. He will continue evaluation care as noted. (4) Hyperlipidemia: Status: Chronic Qualifiers: Hyperlipidemia type: unspecified Qualified Code(s): E78.5 - Hyperlipidemia, unspecified Orders: Orders: Left Heart Cath/COR/LV Percut Today Basic Metabolic Profile (BMP) Today Partial Thromboplast Time Today Prothrombin Time w/INR Today CBC W/Diff, Automated Today Chest PA and Lateral Today Plan - Dr. Fernando Wilkinson MD: His lipid labs from 03-11-2020 were reviewed. His total cholesterol was 180 with an LDL of 117 and HDL 41. His triglycerides were 111. He will continue medical management and follow-up. (5) Chest pain, unspecified: Status: Acute Plan - Dr. Fernando Wilkinson MD: His chest discomfort, tightness, is concerning for underlying cardiovascular disease. Thus based upon his history and his ongoing findings it is reasonable to reassess him in the cardiac catheterization laboratory. (6) Abnormal stress test: Status: Acute Orders: Orders: Left Heart Cath/COR/LV Percut Today Basic Metabolic Profile (BMP) Today Partial Thromboplast Time Today Prothrombin Time w/INR Today CBC W/Diff, Automated Today Chest PA and Lateral Today Plan - Dr. Fernando Wilkinson MD: He did have an abnormal stress nuclear imaging study as noted. Based upon his history it has been recommended he undergo further evaluation with diagnostic cardiac catheterization. The procedure and risks were discussed with him and he was agreeable to this approach. Plan Details Other Medications: New: clopidogrel (Plavix) 4 tablets (300 mg by mouth) on Day 1 then 1 tablet (75 mg by mouth) a day starting on Day 2 75 mg PO DAILY 30 tabs 1RF Additional Comments: The above was discussed with him and he was agreeable to this approach. Thank you for allowing me to participate in the care of your patient. Please don't hesitate to call if any issues arise. This note was generated using a voice recognition system and there may be incorrect words, spelling or punctuation that were not noted when reviewing the office note prior to saving. Follow Up: 6 Months (with PFM) COVID (Procedure Consent) Procedure Criteria Procedure Criteria: Yes Elective The surgeon/proceduralist and patient have discussed in detail the risk of exposure to and/or potential harm posed by the COVID-19 virus with having a surgery/procedure at this time versus the risk of delaying the surgery/procedure. It is not possible to know either the risk of delaying the surgery or procedure or chance of getting an infection with perfect accuracy, but a joint decision was made between the patient and the surgeon/proceduralist to proceed at this time with the scheduled surgery/procedure as indicated on the consent form. Coding Level of Care Code Off vis,est,level 5 Diagnoses Atherosclerotic heart disease of [place] coronary artery without angina pectoris I25.10 [place] vs. transplanted heart: [place] heart Postsurgical percutaneous transluminal coronary angioplasty (PTCA) status Z98.61 Ischemic cardiomyopathy I25.5 Hyperlipidemia E78.5 Hyperlipidemia type: unspecified Chest pain, unspecified R07.9 Abnormal stress test R94.39 Coding Level of Care Code Off vis,est,level 5 Diagnoses Atherosclerotic heart disease of [place] coronary artery without angina pectoris I25.10 [place] vs. transplanted heart: [place] heart Postsurgical percutaneous transluminal coronary angioplasty (PTCA) status Z98.61 Ischemic cardiomyopathy I25.5 Hyperlipidemia E78.5 Hyperlipidemia type: unspecified Chest pain, unspecified R07.9 Abnormal stress test R94.39 Supplemental Info Supplemental Information Transthoracic echocardiogram: 02-19-19 Interpretation Summary Borderline enlarged left ventricle. Mild segmental systolic dysfunction (see wall motion). The estimated ejection fraction is 50 %. Trivial mitral valve insufficiency. Trivial tricuspid valve insufficiency. No evidence for diastolic dysfunction. Stress Test Report Date: 02-19-19 Procedure: Exercise tolerance test/imaging study Indications: Chest pain; shortness of breath/dyspnea; CAD; PCI Consent: Per the patient Procedure: The patient exercised on a Brian protocol for 11 minutes completing Stage III and 2 minutes of Stage IV achieving a peak heart rate of 145 bpm (85 % predicted maximal heart rate) with a peak blood pressure 170/70 mmHg and a peak MET capacity of 13 METs. The baseline ECG demonstrated normal sinus rhythm; nonspecific ST/T wave abnormality. The peak exercise ECG demonstrated continued nonspecific ST/T wave abnormality. There were occasional PVCs during exercise and recovery; occasional ventricular couplets during recovery; rare ventricular triplets during recovery; intermittent ventricular bigeminy during recovery. The functional capacity was considered good. There was no complaint of chest discomfort during exercise or recovery. The examination was discontinued secondary to dyspnea. Impression: 1. Technically adequate (percent predicted maximal heart rate greater than 85%) exercise tolerance test 2. Peak exercise ECG continued nonspecific ST/T wave abnormality 3. There were occasional PVCs during exercise and recovery; occasional ventricular couplets during recovery; rare ventricular triplets during recovery; intermittent ventricular bigeminy during recovery 4. Nuclear images pending Myocardial perfusion imaging study: Technique: The patient was injected with 14.5 mCi of technetium 99m Cardiolite and subsequently rest SPECT Cardiolite nuclear imaging was obtained in the horizontal long, vertical long, and short axis views. The patient exercised on a Brian protocol for 11 minutes completing Stage III and 2 minutes of Stage IV achieving a peak heart rate of 145 bpm (85 % predicted maximal heart rate) with a peak blood pressure 170/70 mmHg and a peak MET capacity of 13 METs. The patient was injected with 44.7 mCi of technetium 99m Cardiolite and subsequently stress SPECT Cardiolite nuclear imaging was obtained in the horizontal long, vertical long, and short axis views. A gated Cardiolite study at peak stress was obtained. Interpretation: Rest and stress SPECT Cardiolite nuclear imaging status post realignment, normalization, and attenuation correction, demonstrates the appearance of extracardiac/gastrointestinal tracer uptake being more prominent at rest as opposed to stress. At rest and stress there is notation of diminished tracer uptake in portions of the basal inferior septal/basal inferior segments without significant change. Status post stress there is notation of diminished tracer uptake in portions of the mid inferior segments.. There is diminished and systolic thickening and brightening in the aforementioned areas. The gated Cardiolite study demonstrates diminished myocardial thickening and inward wall motion in the aforementioned areas. The reported LVEF is 48 %. Impression: 1. Rest and stress SPECT Cardiolite nuclear imaging demonstrate myocardial perfusion changes potentially compatible with the effects of soft tissue attenuation/artifact and/or gastrointestinal tracer uptake/retraction involving portions of the basal inferior septal and basal inferior segments, however, there are additional myocardial perfusion changes status post stress in the mid inferior areas concerning for an area of stress-induced myocardial ischemia. 2. The gated Cardiolite study reports an LVEF of 48 %. Stress Test Report Date: 03-11-2021 Procedure: Exercise tolerance test/imaging study Indications: CAD; PCI; [employer] CDL requirement Consent: Per the patient Procedure: The patient exercised on a Brian protocol for 10 minutes and 30 seconds completing Stage III and 1 minute and 30 seconds of Stage IV achieving a peak heart rate of 142 bpm (84% predicted maximal heart rate) with a peak blood pressure 150/72 mmHg and a peak MET capacity of 12 METs. The baseline ECG demonstrated sinus bradycardia. The peak exercise ECG demonstrated somatic/motion artifact with no obvious ECG changes. There was a rare to occasional PVC during exercise and recovery. The functional capacity was considered good. There was no complaint of chest discomfort during exercise or recovery. The examination was discontinued secondary to dyspnea. Impression: 1. Technically adequate (percent predicted maximal heart rate greater than 85%) exercise tolerance test 2. Peak exercise ECG with somatic/motion artifact with no obvious ECG changes 3. There was a rare to occasional PVC during exercise and recovery 4. Nuclear images pending Myocardial perfusion imaging study: Technique: The patient was injected with 14.3 mCi of technetium 99m Cardiolite and subsequently rest SPECT Cardiolite nuclear imaging was obtained in the horizontal long, vertical long, and short axis views. The patient exercised on a Brian protocol for 10 minutes and 30 seconds completing Stage III and 1 minute and 30 seconds of Stage IV achieving a peak heart rate of 142 bpm (84% predicted maximal heart rate) with a peak blood pressure 150/72 mmHg and a peak MET capacity of 12 METs. The patient was injected with 45.0 mCi of technetium 99m Cardiolite and subsequently stress SPECT Cardiolite nuclear imaging was obtained in the horizontal long, vertical long, and short axis views. A gated Cardiolite study at peak stress was obtained. Interpretation: Rest and stress SPECT Cardiolite nuclear imaging status post realignment, normalization, and attenuation correction, demonstrates the appearance at rest of relative uniform tracer uptake and following stress the appearance of diminished tracer uptake in portions of the mid inferior segments. There is diminished end systolic thickening and brightening. The gated Cardiolite study demonstrates myocardial thickening and inward wall motion. The reported LVEF is 49%. Impression: 1. Rest and stress SPECT Cardiolite nuclear imaging demonstrate myocardial perfusion changes concerning for an area of stress-induced myocardial ischemia in portions of the mid inferior segments. 2. The gated Cardiolite study reports an LVEF of 49%. Cardiac catheterization: 02-20-19 CORONARY ANGIOGRAPHY LEFT HEART ASSESSMENT Left Ventricular Ejection Fraction: by LV Gram 45 % Inferior Basal Hypokinesis. Inferior Mid Akinesis. Inferior Apical Hypokinesis Elevated Left Ventricular End Diastolic Pressure LEFT MAIN: Angiographically normal LEFT ANTERIOR DESCENDING ARTERY: Angiographically normal CIRCUMFLEX ARTERY: PROX CIRC: Mild luminal irregularities OM 1: Ostial - short small caliber vessel: 50 % Stenosis RAMUS: Angiographically normal RIGHT CORONARY ARTERY: PROX RCA: Previously placed stent is patent MID RCA: Previously placed stent is patent VALVE FINDINGS: Normal Aortic Valve function Normal Mitral Valve function AORTIC ROOT: Angiographically normal Labs: LDL Cholesterol 117 mg/dL (0-130) HDL Cholesterol 41 mg/dL (40-) Triglycerides 111 mg/dL (-199) VLDL Cholesterol 22 mg/dL (5-40) Diagnostics: Electrocardiogram Echocardiogram Stress Test NM Stress Test Cardiac Catheterization Chest X-Ray Pulmonary: Pulmonary Function Test 03/16/21 1611<Electronically signed by Fernando Wilkinson MD>Date Fernando Wilkinson MD Cosigner Signature:Date (if applicable) CC: Dr. Saravanan Chavarria MD ~ I have re-examined the patient. There are no clinical changes since date of exam.
--- NOTE | 2021-03-23 10:30 | EKG12_ITS ---
Test Reason : POST PCI Blood Pressure : / mmHG Vent. Rate : 056 BPM Atrial Rate : 056 BPM P-R Int : 200 ms QRS Dur : 102 ms QT Int : 434 ms P-R-T Axes : 067 074 034 degrees QTc Int : 418 ms Sinus bradycardia Otherwise normal ECG When compared with ECG of 24-OCT-2013 16:23, No significant change was found Confirmed by JOSE J THORNTON, BOY ([id number]), web content editor JUAQUIN BLANCA ([id number]) on 03/29/2021 9:14:51 AM Referred By: Fernando Wilkinson Confirmed By:BOY LUX MD
[2021-03-23] MEDS: Metoprolol(XL)Succ 25 MG Tablet PO (11:17)
[2021-03-23] MEDS: 0.9% Normal Saline 1,000 ML 75 ML IV (11:17)
--- NOTE | 2021-03-23 11:59 | PRO.PCM_ITS ---
Procedure Report Date of Procedure: 03/23/21 Procedure performed; 1. Left heart catheterization 2. Selective coronary angiography 3. Measurement of LVEDP 4. Left ventriculogram 5. Moderate sedation 6. Placement of TR band to maintain hemostasis for the right radial arteriotomy site. Preprocedure diagnosis; 50-year-old patient, presented to ED, [facility] yesterday with symptoms of chest pain which progressively worsening. Associated with symptoms of shortness of breath. This has been a chronic symptom for the last 2 months and patient is a cement truck driver and he noted his symptoms is progressively more severe with retrosternal chest pain typical of angina aggravated with exertion and walking and relieved with rest. Patient had history of hypertension he has no prior cardiac history. Cardiac evaluation he had cardiac exam with abnormal electrocardiogram showing ST-T change in the anterolateral leads. The cardiac biomarkers with troponins were negative. Patient treated with medical therapy with aspirin heparin, beta-veronica and statin atorvastatin, patient has abnormal echocardiogram which showed severe LV systolic dysfunction ejection fraction in the range of 15-20%, moderately enlarged left atrium and moderate to severe MR. Based on the clinical presentation patient underwent cardiac catheterization today. Consent; Risk and benefit of the procedure explained in detail to the patient elected to proceed and informed consent obtained. Moderate sedation; Type of anesthesia; moderate anesthesia Patient was given 1 mg of Versed and 50 mcg of fentanyl. Diagnostic catheter used; 1. Approach right radial artery approach with placement of 6 Cymraes Terumo sheath 2. Patient was given a cocktail of 3000 units of heparin, 2.5 verapamil, 200 mcg of nitroglycerin 3. We used 5 Cymraes JL 3.5, 5 Cymraes JR4, 5 Cymraes pigtail catheter. Procedure in detail; Under fluoroscopic guidance we will proceed with the 5 Cymraes JL 3.5 advanced ascending aorta, cannulate the left main coronary artery without difficulty, multiple views of the left coronary system obtained including [place], [place] cranial and caudal views. Following this catheter exchanged for 5 Cymraes JR4 catheter and selective angiographic view of the right carotid system were obtained including [place] cranial and caudal views The same catheter used across aortic valve and then placed the 5 Cymraes pigtail catheter and interventricular obtained 30 degree [place] projection using a total of 30 cc of contrast And measurement of LVEDP Following this pullback pressure recorded Hemodynamic; Severe LV systolic dysfunction ejection fraction in the range of 20-25% with global LV hypokinesia, +2?+3 mitral regurgitation noted No systolic gradient across aortic valve Coronary angiography findings; 1. Left main calcified, bifurcating into LAD and the left circumflex The left main is short, angiographically no significant atherosclerosis of the left main noted. 2. Proximal LAD calcified 50% stenosis, followed by diffuse mid LAD 90% s tenosis. Distal LAD had no significant atherosclerosis with good distal targets for bypass Collaterals from the apical portion of the LAD to the right coronary artery/RPDA 3. Ostial diagonal 90% stenosis/moderate size vessel. 4. Proximal left circumflex had diffuse 80% stenosis 5. Bifurcation of OM1/left circumflex 90% large vessel. 6. Right coronary artery mid subtotal with the distal RCA subtotal and collateralization from the left coronary system to the RCA. The RCA is a small to moderate-sized vessel. Conclusion and plan; This patient has a chronic symptoms of angina shortness of breath Medical history history of hypertension no history of diabetes. He has severe multivessel coronary artery disease with severe LV systolic dysfunction Moderate to severe mitral regurgitation 1. We will transfer the patient for evaluation by CV surgeon for CABG/ELISSA guided mitral valve surgery 2. Medical therapy with beta-veronica carvedilol, lisinopril, aspirin, atorvasta tin, diuretic as needed and Aldactone. #3 plan of cardiac care and finding explained in detail to the patient and he agreed for transfer for evaluation for bypass surgery. Nakita Luna MD,FACC,[facility]
--- NOTE | 2021-03-23 12:15 | PCIREPORT_ITS ---
PCI Cardiac Cath Report PCI Report: Procedure performed; 1. Successful percutaneous core intervention of high-grade 90% stenosis of the distal RCA with predilatation and placement of drug-eluting stent/Orsiro 3 x 22 mm, postdilated with 3.5 x 15 mm NC balloon and reduction of stenosis to 0% with maintenance of ALVARADO-3 flow pre and post procedure. 2. Placement of TR band to close the right radial artery arteriotomy site. Indication; 50-year-old patient with CAD, prior PCI and stent of RCA in 2011. Seen and evaluated by his primary editor publications Dr. Wilkinson for stable angina, with nuclear stress test which is abnormal and underwent cardiac catheterization The angiographic findings discussed and reviewed Patient had mild nonobstructive atherosclerosis of sidebranch the diagonal as well as the left circumflex He has patent RCA stent with high-grade 90% stenosis in the distal RCA which is a large dominant vessel. Patient has mild LV systolic dysfunction with ejection fraction of 45% with inferobasal hypokinesia. Consent; Risk and benefit of the procedure explained in detail to the patient, informed consent obtained Interventional equipment; 1. 6 Croatian JR4 guide 2. 0.014 run-through wire, 180 cm 3. 2.5 x 15 mm regular balloon 4. Drug-eluting stent/Orsiro 3 x 22 mm 5. NC balloon/emerge 3.5 x 15 mm Procedure in detail; We will proceed with 6 [place]ian JR4 guide under fluoroscopic guidance, engaged the right coronary ostium without difficulty Angiographic views were obtained in GER[place] and [place] views, patient was given heparin a total of 8000 international unit and also he was given 300 mg of Plavix he has been on aspirin and Plavix. Then will proceed with a wire across the lesion in the distal RCA, followed by balloon dilatation using 2.5 x 15 mm balloon Then followed by placement of a drug-eluting stent 3 x 22 mm/Orsiro, followed by postdilatation using 3.5 x 15 mm NC balloon and achievement of excellent result with no dissection or complication. ACT level is accepted above 250. Following this all catheter removed Hemostasis maintained with placement of TR band to right radial artery arteriotomy site. Conclusion and recommendations; Patient has high-grade stenosis of the distal RCA underwent successful percutaneous coronary intervention and placement of a drug-eluting stent to the distal RCA Patient to continue on dual antiplatelet therapy/DAPT Plavix and aspirin for 1 year and aspirin low-dose indefinitely. Post procedure findings discussed with the patient and the primary editor publications Dr. Wilkinson, patient will follow up for continuation of cardiac care Phase 1 cardiac rehab has been recommended. Nakita Luna MD,FACC,[facility]
--- NOTE | 2021-03-23 12:20 | PCI.CARDCATH ---
PCI Cardiac Cath Report PCI Report: Procedure performed; Successful PCI of high-grade 90% distal RCA stenosis with predilatation and placement of a drug-eluting stent Orsiro 3 x 22 mm, postdilated with 3.5 x 15 mm NC balloon with reduction of stenosis to 0% and maintaining ALVARADO-3 flow pre and post procedure. Successful placement of TR band to close the right radial artery arteriotomy site. Preprocedure diagnosis 50-year-old patient with history of CAD status post PCI and stent of RCA in 2011 Patient also has a history of hypertension, obstructive sleep apnea He had symptoms of chest pain with abnormal nuclear stress test and also had a history of prior myocardial infarction. This patient underwent cardiac catheterization today by his primary reservoir engineering consultant Dr. Wilkinson, angiographic films reviewed and discussed He has nonobstructive atherosclerosis involving the left coronary system left circumflex artery and ostial of a diagonal Patient LV systolic function is preserved and he had severe high-grade stenosis distal to the RCA stent involving the distal RCA which is large vessel, dominant Consent; Risk and benefit of the procedure explained in detail to the patient elected to proceed informed consent obtained. Patient has been already on Plavix and aspirin, he was given additional 300 mg of Plavix in the Veterinary Laboratory Diagnostician Anticoagulation use in this case is heparin and maintain ACT level above 250 he was given a total of 8000 of heparin in addition to 3000 of heparin was given through the right radial artery sheath by Dr. Wilkinson. Interventional equipment and catheters 1. 6 Polish, JR4 guide catheter 2. 0.014 guide wire 180 cm. 3. 2.5 x 15 mm balloon 4. Drug-eluting stent/Orsiro 3 x 22 mm 5. 3.5 x 15 mm NC balloon Procedure in detail; E proceed with 6 Polish JR4 guide advanced ascending aorta under fluoroscopic guidance, engaged the right coronary ostium without difficulty Angiographic view obtained, then will proceed with run-through wire across the lesion in the distal RCA, followed by predilatation using 2.5 x 15 mm balloon, followed by placement of a drug-eluting stent 3 x 22 mm, and then will proceed with postdilatation using 3.5 x 50 mm NC balloon and achievement of excellent result with no complication. Conclusion and recommendation; Successful percutaneous core intervention of high-grade distal RCA stenosis with placement of drug eluting stent as a specified. Placement of TR band to close right radial artery arteriotomy site with no complication in the Veterinary Laboratory Diagnostician Patient to continue on dual antiplatelet therapy/DAPT with Plavix and aspirin for 1 year And patient will follow up with the primary reservoir engineering consultant Dr. Wilkinson for continuation of cardiac care plan. Nakita Luna MD,FACC,[facility]
--- NOTE | 2021-03-23 14:11 | CRPHASE1_ITS ---
Patient Communication Former Patient:: Phase I PHII Cardiac Rehab Discussed with Patient:: Yes Guide to Cardiac Rehab Given to Patient:: Yes Cardiac Rehab Facility Choice List Given to Patient:: Yes Choice Program [facility] CR PHII:: Communication Given to CR Choice Program Other:: Communication Given to CR [employer] Counselor:: JOVANI Beal Phase II Cardiac Rehab:: Yes Sessions:: 36 sessions - 3 days/wk, 12 weeks Cardiac Rehabilitation Info Cardiac Rehabilitation Program Information: Cardiac Rehabilitation is important for patients like you who are recovering from a heart problem. Cardiac rehabilitation programs are recognized as integral to the continued care of the patient with coronary heart disease. The cardiac rehabilitation program is designed to optimize a patient's physical, psychological, and social functioning. Health animal care attendant work in cardiac rehabilitation programs and assist you with getting the treatments you need to get stronger and healthier - like exercise, healthy eating habits, and medications. Cardiac rehabilitation has been show to help people with heart problems live longer and have better life enjoyment than people who do not go to cardiac rehabilitation. Please contact the Cardiac Rehabilitation Program at [facility] at in two weeks if you have not heard from them.
--- NOTE | 2021-03-23 14:12 | CRPH1.INSTRU ---
General Education CAD and cardiac anatomy and function:: Patient communicates acknowledgment Explanation of diagnoses and procedures:: Patient communicates acknowledgment Sign/Symptoms of KS:: Patient communicates acknowledgment Antiplatelet therapy: Patient communicates acknowledgment Smoking Recommendations Include:: Previous smoker; encourage continued cessation Nicotine/Smoking Response Code:: Patient communicates acknowledgment Dyslipidemia Patient Dyslipidemia Risk Factors Are:: Total Cholesterol, Triglycerides, LDL Recommendations Include:: Lipid profile provided, Reviewed NCEP/ATP guidelines, Therapeutic Lifestyle Change dietary guidelines Dyslipidemia Response Code:: Patient communicates acknowledgment Overweight/Obesity Patient Overweight/Obesity Risk Factors Are:: BMI Normal [18-25 & < 65 years old], Obesity - > or = 30 Recommendations Include:: Weight loss of 5-10%, Reduced calorie diet, Exercise 5-7 times/week Overweight/Obesity:: Patient communicates acknowledgment Hypertension Patient Hypertension Risk Factors Are:: No documented hx of HTN Heart Disease Patient Heart Disease Risk Factors Are:: Previous cardiac event Heart Disease Response Code:: Patient communicates acknowledgment Diabetes Patient Diabetes Risk Factors Are:: No documented hx of diabetes Sedentary Patient Sedentary Risk Factors Are:: Lack of regular exercise Recommendations Include:: Aerobic exercise 5-7 times/week for 20-30 minutes continuously, Benefits of regular exercise, Discussed home walking program, Monitored Outpatient Cardiac Rehab Sedentary Response Code:: Patient communicates acknowledgment Stress Patient Stress Risk Factors Are:: Patient denies stress as a risk factor Recommendations Include:: Identification of stressors, and assessment of coping skills, Stress management techniques Stress Response Code:: Patient communicates acknowledgment
--- NOTE | 2021-03-23 16:31 | CASEMGMT ---
Insurance review for hospitals In-network with [facility] Insurance [facility], [place], [place], [facility], [facility] ([facility]), and . Tad BSN RN CM
--- NOTE | 2021-03-23 16:32 | CL.D_ITS ---
Patient Name: ANDREW BROOKS Study Date: 03/23/2021 Performing: Fernando Wilkinson MD Ht: 70 inches 178 cm : 1970 Wt: 218.5 lbs 99 kg Age: 50 Gender: male BSA: 2.17 PROCEDURE(S) PERFORMED FD59-GGE/COR/LV CG70-IDS W OR WO PTCA, SINGLE CORONARY ARTERY CLINICAL PROFILE AND INDICATIONS Indications: Worsening Angina, Other Heart Failure: None Stress/Imaging Date: 03/11/2021tress Test with SPECT MPI: Positive Intermediate Risk Angina Classification Anginal Classification w/in 2 Weeks: CCS III CAD Presentations: Stable angina. CONCLUSIONS Elevated Left Ventricular End Diastolic Pressure Segmented LV systolic dysfunction- Mild LVEF: by LV gram 45 % [place] Multivessel CAD RCA: stents: patent RECOMMENDATIONS Medical therapy Referred for immediate PCI DESCRIPTION OF PROCEDURE The patient arrived to the procedure lab. The risks and benefits of the procedure as well as a full d escription of our services here and current unavailability of surgical backup were fully explained to the patient and/or their significant other prior to the catheterization. The Timeout was completed, verifying the correct patient and procedure. The patient's procedural site was prepped and draped in the usual fashion. Local anesthetic was given subcutaneously to right radial region with Lidocaine 2% . Using a modified Seldinger technique, arterial access was obtained via the right radial artery, a 6 Fr sheath was inserted. Right Coronary Artery selective angiography was then performed in multiple v iews using a 5 Fr. 4.0 [place] catheter. Left Coronary Artery selective angiography was performed in mu ltiple views using a 5 Fr. 4.0 [place] catheter. Left Ventriculography was performed in WHEATLEY projection using a 5 Fr. Pigtail catheter. LV to AO pullback pressures were then recorded.The arterial sheath was pulled and a TR Band was applied for hemostasis, sheath flushed prior to removal. 12cc air inserted CORONARY ANGIOGRAPHY DOMINANCE: Right Dominant LEFT HEART ASSESSMENT Left Ventricular Ejection Fraction: by LV Gram 45 % Inferior Basal Hypokinesis. Inferior Mid Hypokinesis Elevated Left Ventricular End Diastolic Pressure LVEDP: 21 mmHg LEFT MAIN: Angiographically normal LEFT ANTERIOR DESCENDING ARTERY: Angiographically normal CIRCUMFLEX ARTERY: PROX CIRC: Mild luminal irregularities OM 1: Ostial - short small caliber vessel: 50 % Stenosis RAMUS: Angiographically normal RIGHT CORONARY ARTERY: PROX RCA: Previously placed stent is patent MID RCA: Previously placed stent is patent DISTAL RCA: eccentric: hazy: 90 % Stenosis AORTIC ROOT: Angiographically normal COMPLICATIONS No Complications PROCEDURE MEDICATIONS Fentanyl 50 mcg IV Versed 1 mg IV Oxygen: 2 L/min via nasal cannula Heparin given IA 03/23/2021 09:21:13 Heparin 6000 unit(s) IV 03/23/2021 09:45:29 Heparin 2000 unit(s) IV 03/23/2021 10:12:02 Plavix 300 mg PO 03/23/2021 09:45:25 Verapamil 2.5mg, Ntg 100mcgs, 3000 units of Heparin given IA 03/23/2021 09:21:13 SUMMARY OF HEMODYNAMIC DATA Time AIR REST ECG 07:40:48 AO 90/53 (69) SA 09:24:27 LV 119/5, 22 09:37:34 LV 116/3, 21 09:37:40 LV 112/5, 23 09:38:38 LV 114/5, 22 09:38:44 LVp 117/2, 23 09:38:48 AOp 120/65 (87) 09:38:53 AO 128/74 (96) 09:53:04 Signed By Fernando Wilkinson MD On 03/23/2021 4:30:58 PM Fernando Wilkinson MD
--- NOTE | 2021-03-23 17:10 | PN.CARD_ITS ---
Subjective Subjective The patient is status post diagnostic cardiac catheterization and PCI. He appears to be resting comfortably at this time. He has no new acute complaints. Objective Data Vital Signs: Vital Signs Temp Pulse Resp BP Pulse Ox 97.6 F L 60 18 108/71 96 03/23/21 12:00 03/23/21 12:30 03/23/21 12:30 03/23/21 12:30 03/23/21 12:30 Oxygen Delivery Method Room Air Weight: 219 lb Body Mass Index (BMI) 31.4 Intake & Output: Intake and Output for Last 24 Hours 03/21/21 03/22/21 03/23/21 23:59 23:59 23:59 Intake Total 200 / 200 Balance 200 / 200 Lab / Micro Data Result Diagrams: 03/24/21 05:45 03/24/21 05:45 Cardiology Labs/Tests Rhythm: Sinus rhythm EKG: Sinus bradycardia Cardiac Cath: CONCLUSIONS Elevated Left Ventricular End Diastolic Pressure Segmented LV systolic dysfunction- Mild LVEF: by LV gram 45 % [place] Multivessel CAD RCA: stents: patent RECOMMENDATIONS Medical therapy Referred for immediate PCI DESCRIPTION OF PROCEDURE The patient arrived to the procedure lab. The risks and benefits of the procedure as well as a full description of our services here and current unavailability of surgical backup were fully explained to the patient and/or their significant other prior to the catheterization. The Timeout was completed, verifying the correct patient and procedure. The patient's procedural site was prepped and draped in the usual fashion. Local anesthetic was given subcutaneously to right radial region with Lidocaine 2%. Using a modified Se cabralesinger technique, arterial access was obtained via the right radial artery, a 6Fr sheath was inserted. Right Coronary Artery selective angiography was then performed in multiple views using a 5 Fr. 4.0 [place] catheter. Left Coronary Artery selective angiography was performed in multiple views using a 5 Fr. 4.0 [place] catheter. Left Ventriculography was performed in [place]AT[place] projection using a 5 Fr. Pigtail catheter. LV to AO pullback pressures were then recorded.The arterial sheath was pulled and a TR Band was applied for hemostasis, sheath flushed prior to removal. 12cc air inserted CORONARY ANGIOGRAPHY DOMINANCE: Right Dominant LEFT HEART ASSESSMENT Left Ventricular Ejection Fraction: by LV Gram 45 % Inferior Basal Hypokinesis. Inferior Mid Hypokinesis Elevated Left Ventricular End Diastolic Pressure LVEDP: 21 mmHg LEFT MAIN: Angiographically normal LEFT ANTERIOR DESCENDING ARTERY: Angiographically normal CIRCUMFLEX ARTERY: PROX CIRC: Mild luminal irregularities OM 1: Ostial - short small caliber vessel: 50 % Stenosis RAMUS: Angiographically normal RIGHT CORONARY ARTERY: PROX RCA: Previously placed stent is patent MID RCA: Previously placed stent is patent DISTAL RCA: eccentric: hazy: 90 % Stenosis AORTIC ROOT: Angiographically normal Physical Exam Const alert, oriented x3, no apparent distress and healthy appearing Orientation / Consciousness: awake HEENT normocephalic, head/scalp atraumatic and hearing grossly normal bilaterally Eyes PERRL and EOMs intact bilaterally Neck full ROM and supple Chest inspection of chest normal Resp normal respiratory effort and clear to auscultation bilaterally Cardio regular rate, regular rhythm, S1 normal heart sound and S2 normal heart sound GI normal to inspection, nondistended, normoactive bowel sounds Extremity normal to inspection General Extremity: edema Peripheral Pulses: Yes radial pulses present right 2+ Skin no rashes or lesions noted Psych mental status grossly normal Assessment & Plan Assessment/Plan (1) Atherosclerotic heart disease of [place] coronary artery without angina pectoris: QUALIFIERS: [place] vs. transplanted heart: [place] heart Qualified Code(s): I25.10 - Atherosclerotic heart disease of [place] coronary artery without angina pectoris PLAN: The patient has a history of CAD. Based upon his symptoms and exercise tolerance test findings he underwent reevaluation with a diagnostic cardiac catheterization this day. This resulted in additional RCA PTCA/stent. At the present time he appears to be resting comfortably. He will continue medical therapy and follow-up. (2) Presence of stent in coronary artery: PLAN: The patient's RCA stents were patent. He had distal RCA disease which required additional PTCA/stent. He appeared to receive good angiographic results. He will continue medical therapy and follow-up. (3) Ischemic cardiomyopathy: PLAN: The patient has a history of an underlying ischemic mediated cardiomyopathy. He will continue medical therapy and follow-up as tolerated. Of note: Ideally the patient would be placed on additional medical therapy with afterload reducing therapy such as an JONY inhibitor/ARB. The patient states he has been on an JONY inhibitor in the past and did not tolerate it secondary to hypotension. (4) Hyperlipidemia: QUALIFIERS: Hyperlipidemia type: unspecified Qualified Code(s): E78.5 - Hyperlipidemia, unspecified PLAN: The patient has been on lipid-lowering therapy. An attempt will be made to advance his dose as tolerated. Addt'l Comments The patients case has been discussed and reviewed with the patient and Dr. Luna of interventional cardiology. This note was generated using a voice recognition system and there may be incorrect words, spelling or punctuation that were not noted when reviewing the office note prior to saving.
[2021-03-23] MEDS: Atorvastatin Calcium 80 MG Tablet PO (20:00)
[2021-03-24] VITALS (7 sets, daily range): BP systolic 91–96; BP diastolic 52–58; PULSE 60–63; RESP 16–18; TEMP 36.5–37.1; O2SAT 96–100
--- NOTE | 2021-03-24 05:55 | EKG12_ITS ---
Test Reason : AM EKG Blood Pressure : / mmHG Vent. Rate : 055 BPM Atrial Rate : 055 BPM P-R Int : 188 ms QRS Dur : 102 ms QT Int : 442 ms P-R-T Axes : 072 073 031 degrees QTc Int : 422 ms Sinus bradycardia Otherwise normal ECG When compared with ECG of 23-MAR-2021 11:20, MANUAL COMPARISON REQUIRED, DATA IS UNCONFIRMED Confirmed by JOSE J THORNTON, BOY ([id number]), editor & co founder JUAQUIN BLANCA ([id number]) on 03/29/2021 9:07:05 AM Referred By: Fernando Wilkinson Confirmed By:BOY LUX MD
[2021-03-24 06:45] LABS: Absolute Lymphocyte Count 1.09 X10^3/uL (0.83-4.51); Absolute Neutrophil Count 4.6 X10^3/uL (2.0-7.7); Basophil# 0.08 X10^3/uL; Basophil% 1.1 % (0-1); Eosinophil# 0.39 X10^3/uL; Eosinophils% 5.6 % (0-5); Hematocrit 47.6 % (40-54); Hemoglobin 15.4 g/dL (13.0-16.5); Lymphocyte # 1.09 X10^3/ul (0.83-4.51); Lymphocyte % 15.7 % (19-41); Mean Corp Hgb Conc 32.4 g/dL (32-36); Mean Corpuscular Hgb 30.3 pg (27.0-32.0); Mean Corpuscular Volume 93.7 fL (80-94); Monocyte# 0.65 X10^3/uL; Monocyte% 9.3 % (0-10); NRBC Flagged by Analyzer 0 % (0-5); Neutrophil # 4.63 X10^3/uL (2.7-7.7); Neutrophil % 66.6 % (47-70); Platelet Count 183 K/mm3 (150-450); RBC Distribution Width SD 41.6 fl (35.1-43.9); Red Blood Count 5.08 M/mm3 (4.6-6.2)
[2021-03-24 07:18] LABS: ALB/GLOB Ratio 1.1 RATIO (0.9-2.4); AST(SGOT) 23 U/L (15-37); Alanine Aminotransfer ALT/SGPT 36 U/L (16-61); Albumin, Serum 3.4 g/dL (3.2-5.0); Alkaline Phosphatase 48 U/L (45-117); Anion Gap 2 (5-15); BUN 13 mg/dL (7-18); BUN/Creat Ratio 18.1 RATIO (10-20); Chloride 110 mmol/L (98-107); Creatinine, Serum 0.72 mg/dL (0.70-1.30); EST Glomerular Filtration Rate 122 mL/min (>60); Est Glom Filt Rate - Afr Amer 148 mL/min (>60); Estimated Creatinine Clearance 125.33 ml/min; Globulin 3.2 g/dL (2.2-4.2); Glucose 83 mg/dL (74-106); Potassium 3.9 mmol/L (3.5-5.1); Protein, Total 6.6 g/dL (6.4-8.2); Sodium Level 139 mmol/L (136-145)
--- NOTE | 2021-03-24 08:29 | PCM.DC ---
Discharge Instructions Diet Discharge Diet: Low fat / Low cholesterol Activity Discharge Activity: May Not Drive (May not drive using right upper extremity x 48 hours), May Shower (Today) and May Take a Tub Bath (in 7 days) Return to work on:: 03/27/21 Weight Bearing Status: - (avoid heavy exertional activity until 03/27/2021 then resume normal activity as tolerated) Dressing / Incision Call your doctor if your incision/area has: Continuous Slow Oozing, Sudden Increased Bleeding, Increased Pain/ Swelling, Increased Redness, Foul Smelling Discharge and Swelling at the incision site Call your doctor if you observe: Fever of 101 or Higher, Shortness of breath, Fainting spells, Chest pain and Increased palpitations (irregular heartbeat) Remove Dressing in: 1 day Cleanse incision/area with: Soap & Water Follow Up Care Please Follow Up With: Fernando Wilkinson MD When: [facility] to arrange follow up appointment Test Results: Test results from this visit will be discussed in further detail at your follow-up appointment, if applicable. Discharge Plan Admission Admit Date/Time: 03/23/21 09:52 Primary Reason for Your Visit: Chest pain; abnormal stress test; for diagnostic cardiac catheterization Attending Provider: Fernando Wilkinson Primary Care Provider: Saravanan Chavarria Discharge Orders/Prescriptions Prescriptions: New atorvastatin 80 mg Tablet 80 mg PO QHS Qty: 90 RF: 3 clopidogrel 75 mg Tablet 75 mg PO DAILY Qty: 90 RF: 3 nitroglycerin 0.4 mg Tablet, Sublingual 0.4 mg sublingual Q5M PRN (Reason: Cardiac/Chest Pain) Qty: 90 RF: 3 aspirin 81 mg Tablet,Chewable 81 mg PO DAILY@0800 Qty: 0 RF: 0 Continued metoprolol succinate 25 mg tablet extended release 24 hr 12.5 mg PO DAILY RF: 0 clopidogrel [Plavix] 75 mg tablet 75 mg PO DAILY Qty: 30 RF: 1 aspirin 81 MG tablet,chewable 81 mg PO DAILY@0800 RF: 0 nitroglycerin 0.4 mg tablet, sublingual 0.4 mg SUBLINGUAL Q5M PRN (Reason: Chest Pain) Qty: 25 RF: 3 Discontinued atorvastatin 40 mg tablet 40 mg PO QDAY Qty: 90 RF: 3 Referrals / Follow Up: Fernando Wilkinson MD [STAFF PHYSICIAN] - Saravanan Chavarria MD [Primary Care Provider] - Disposition Disposition (needs filled in before D/C Order can be placed): Home, self care
[2021-03-24] MEDS: Metoprolol(XL)Succ 25 MG Tablet PO (08:44)
[2021-03-24] MEDS: Aspirin 81 MG TAB.CHEW PO (08:44)
[2021-03-24] MEDS: Clopidogrel Bisulfate 75 MG Tablet PO (08:44)
--- NOTE | 2021-03-24 09:28 | DS.PCM_ITS ---
Providers Date of Admission: 03/23/21 Primary Care Physician: Dr. 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 transplanted heart: [place] heart Qualified Code(s): I25.10 - Atherosclerotic heart disease of [place] coronary artery without angina pectoris (2) Presence of stent in coronary artery: Status: Chronic Code(s): Z95.5 - Presence of coronary angioplasty implant and graft (3) Ischemic cardiomyopathy: Status: Chronic Code(s): I25.5 - Ischemic cardiomyopathy (4) Hyperlipidemia: Status: Chronic Code(s): E78.5 - Hyperlipidemia, unspecified Qualifiers: Hyperlipidemia type: unspecified Qualified Code(s): E78.5 - Hyperlipidemia, unspecified Medications at Discharge Home Medications aspirin 81 mg PO DAILY@0800 10/24/13 nitroglycerin 0.4 mg sublingual tablet 0.4 mg SUBLINGUAL Q5M PRN #25 tab 03/02/19 metoprolol succinate 25 mg tablet,extended release 24 hr 12.5 mg PO DAILY tab 04/14/20 clopidogrel 75 mg tablet 75 mg PO DAILY #30 tab 03/16/21 aspirin 81 mg PO DAILY@0800 #0 tab 03/24/21 atorvastatin 80 mg PO QHS #90 tab 03/24/21 clopidogrel 75 mg PO DAILY #90 tab 03/24/21 nitroglycerin 0.4 mg SUBLINGUAL Q5M PRN #90 tab 03/24/21 Hospital Course Procedures Cardiac catheterization and - (Cardiac Intervention) Summary of Care Provided Minutes Spent on Discharge: 45 Hospital Course: The patient presented to [facility] based upon concerns of chest discomfort abnormal exercise tolerance test for further evaluation with diagnostic cardiac catheterization. The patient underwent diagnostic cardiac catheterization and was found to have angiographically significant appearing CAD of the distal RCA system. He subsequently underwent RCA PTCA/stent/ALON. He was monitored in the hospital overnight. He remains symptomatically and hemodynamically stable. On this day he was felt stable for release home for continued outpatient cardiovascular follow-up. Physical Exam Const alert, oriented x3, no apparent distress and healthy appearing Orientation / Consciousness: awake HEENT normocephalic, head/scalp atraumatic and hearing grossly normal bilaterally Eyes PERRL and EOMs intact bilaterally Neck full ROM and supple Chest inspection of chest normal Resp normal respiratory effort and clear to auscultation bilaterally Cardio regular rate, regular rhythm, S1 normal heart sound and S2 normal heart sound GI normal to inspection, nondistended, normoactive bowel sounds Extremity normal to inspection General Extremity: edema Peripheral Pulses: Yes radial pulses present right 2+ Skin no rashes or lesions noted Psych mental status grossly normal Weight / BMI Weight Weight: 219 lb Body Mass Index (BMI) 31.4 ABG / Lab / Microbiology Data Result Diagrams: 03/24/21 05:45 03/24/21 05:45 Laboratory: Laboratory Results - last 24 hr 03/24/21 03/24/21 05:45 05:45 WBC 7.0 RBC 5.08 Hgb 15.4 Hct 47.6 MCV 93.7 MCH 30.3 MCHC 32.4 RDW Std Deviation 41.6 RDW Coeff of Gilson 12.0 Plt Count 183 MPV 10.0 Immature Gran % (Auto) 1.700 H Neut % (Auto) 66.6 Lymph % (Auto) 15.7 L [place] % (Auto) 9.3 Eos % (Auto) 5.6 H Baso % (Auto) 1.1 H Absolute Neuts (auto) 4.6 Absolute Lymphs (auto) 1.09 Nucleated RBC % 0 Sodium 139 Potassium 3.9 Chloride 110 H Carbon Dioxide 27.0 Anion Gap 2 L BUN 13 Creatinine 0.72 Estim Creat Clear Calc 125.33 Est GFR (MDRD) Af Amer 148 Est GFR (MDRD) Non-Af 122 BUN/Creatinine Ratio 18.1 Glucose 83 Calcium 9.0 Total Bilirubin 0.90 AST 23 ALT 36 Alkaline Phosphatase 48 Total Protein 6.6 Albumin 3.4 Globulin 3.2 Albumin/Globulin Ratio 1.1 D/C Instructions Discharge Diet: Low fat / Low cholesterol Return to work on: 03/27/21 Weight Bearing Status: - (avoid heavy exertional activity until 03/27/2021 then resume normal activity as tolerated) Call your doctor if your incision/area has: Continuous Slow Oozing, Sudden Increased Bleeding, Increased Pain/ Swelling, Increased Redness, Foul Smelling D ischarge and Swelling at the incision site Call your doctor if you observe: Fever of 101 or Higher, Shortness of breath, Fainting spells, Chest pain and Increased palpitations (irregular heartbeat) Cleanse incision/area with: Soap & Water Please Follow Up With: Fernando Wilkinson MD When: [facility] to arrange follow up appointment Meaningful Use Info Meaningful Use Diagnoses (Choose all that apply): None applicable Discharge Plan Admission Admit Date/Time: 03/23/21 09:52 Primary Reason for Your Visit: Chest pain; abnormal stress test; for diagnostic cardiac catheterization Attending Provider: Fernando Wilkinson Primary Care Provider: Saravanan Chavarria Discharge Orders/Prescriptions Prescriptions: New atorvastatin 80 mg Tablet 80 mg PO QHS Qty: 90 RF: 3 clopidogrel 75 mg Tablet 75 mg PO DAILY Qty: 90 RF: 3 nitroglycerin 0.4 mg Tablet, Sublingual 0.4 mg sublingual Q5M PRN (Reason: Cardiac/Chest Pain) Qty: 90 RF: 3 aspirin 81 mg Tablet,Chewable 81 mg PO DAILY@0800 Qty: 0 RF: 0 Continued metoprolol succinate 25 mg tablet extended release 24 hr 12.5 mg PO DAILY RF: 0 clopidogrel [Plavix] 75 mg tablet 75 mg PO DAILY Qty: 30 RF: 1 aspirin 81 MG tablet,chewable 81 mg PO DAILY@0800 RF: 0 nitroglycerin 0.4 mg tablet, sublingual 0.4 mg SUBLINGUAL Q5M PRN (Reason: Chest Pain) Qty: 25 RF: 3 Discontinued atorvastatin 40 mg tablet 40 mg PO QDAY Qty: 90 RF: 3 Referrals / Follow Up: Fernando Wilkinson MD [STAFF PHYSICIAN] - Saravanan Chavarria MD [Primary Care Provider] - Disposition Disposition (needs filled in before D/C Order can be placed): Home, self care
== END 2021-03-24 09:19 | disposition home or self-care (01) ==
LOC: PCU 13:04
PROVIDERS: Admitting Provider Internal Medicine Cardiovascular Disease; PCP Family Medicine; Referring Provider Internal Medicine Cardiovascular Disease; Visit Provider Internal Medicine Cardiovascular Disease
DX: I25.118 Atherosclerotic heart disease of native coronary artery with other forms of angina pectoris (principal); I25.5 Ischemic cardiomyopathy; E78.5 Hyperlipidemia, unspecified; G47.33 Obstructive sleep apnea (adult) (pediatric); I25.2 Old myocardial infarction; Z79.899 Other long term (current) drug therapy; Z79.02 Long term (current) use of antithrombotics/antiplatelets; Z79.82 Long term (current) use of aspirin; Z87.891 Personal history of nicotine dependence
CPT/HCPCS: 36415; 71046; 80048; 80053; 85025; 85610; 85730; 92928; 93005; 93458; 96360; 96361; 99152; 99153; 99218; J7030; J7040; Q9967; C1725; C1769; C1874; C1887; C1894; C9600; G0378; G0379

== ENCOUNTER 2021-09-23 09:55 | Day surgery (SDC) | payer OTHER, SELFPAY ==
[2021-09-23 09:56] VITALS: BP 112/87; PULSE 76; RESP 18; TEMP 36.1; O2SAT 96; BMI 34.0
--- NOTE | 2021-09-23 10:05 | RAD_ITS ---
STUDY: X-RAY CHEST REASON FOR EXAM: Male, 51 years old. Chest pain TECHNIQUE: Single AP portable view of the chest. COMPARISON: Comparison is made with prior study dated 03/16/2021. FINDINGS: EKG electrodes are seen. The lungs are clear and expanded. There is no demonstrated pleural abnormality. Normal size heart. Normal mediastinum and graciela. Normal visualized pulmonary arteries. Normal visualized aortic arch and descending thoracic aorta. There are degenerative changes of the visualized thoracic spine. The patient is status post screw and everardo fixation of the lower cervical spine. There is no demonstrated abnormality of the visualized soft tissue structures of the upper abdomen. RAD/Chest 1 View (Portable) IMPRESSION: Normal x-ray examination of the chest. Electronically Signed: Humberto Deutsch MD at 10:25 EST , Service support ,
--- NOTE | 2021-09-23 10:06 | EKG12_ITS ---
Test Reason : CP Blood Pressure : / mmHG Vent. Rate : 067 BPM Atrial Rate : 067 BPM P-R Int : 170 ms QRS Dur : 104 ms QT Int : 392 ms P-R-T Axes : 061 068 016 degrees QTc Int : 414 ms Normal sinus rhythm Normal ECG Confirmed by JOSE J THORNTON, BOY ([id number]), graphics editor JUAQUIN BLANCA ([id number]) on 09/26/2021 9:48:19 AM Referred By: SHAN/CHAIM Confirmed By:BOY LUX MD
[2021-09-23 10:08] VITALS: O2SAT 95
[2021-09-23 10:28] LABS: Absolute Lymphocyte Count 1.52 X10^3/uL (0.83-4.51); Absolute Neutrophil Count 4.1 X10^3/uL (2.0-7.7); Basophil# 0.07 X10^3/uL; Eosinophil# 0.22 X10^3/uL; Eosinophils% 3.3 % (0-5); Hematocrit 47.7 % (40-54); Hemoglobin 16.2 g/dL (13.0-16.5); Lymphocyte # 1.52 X10^3/ul (0.83-4.51); Lymphocyte % 22.6 % (19-41); Mean Corpuscular Hgb 30.5 pg (27.0-32.0); Mean Corpuscular Volume 89.8 fL (80-94); Mean Platelet Vol. 9.5 fl (6.2-12.0); Monocyte# 0.67 X10^3/uL; NRBC Flagged by Analyzer 0 % (0-5); Neutrophil # 4.06 X10^3/uL (2.7-7.7); Neutrophil % 60.4 % (47-70); Platelet Count 207 K/mm3 (150-450); Prothrombin Time (Protime)PT. 12.9 SECONDS (11.7-14.9); RBC Distribution Width CV 12.4 % (11.6-14.6); RBC Distribution Width SD 40.7 fl (35.1-43.9); Red Blood Count 5.31 M/mm3 (4.6-6.2); White Blood Count 6.7 K/mm3 (4.4-11.0)
[2021-09-23 10:44] VITALS: BP 113/77; PULSE 75; RESP 13; O2SAT 96
[2021-09-23 10:51] LABS: Anion Gap 5 (5-15); BUN 9 mg/dL (7-18); BUN/Creat Ratio 10.2 RATIO (10-20); Calcium,Total 9.1 mg/dL (8.5-10.1); Chloride 106 mmol/L (98-107); Creatinine, Serum 0.88 mg/dL (0.70-1.30); EST Glomerular Filtration Rate 96 mL/min (>60); Est Glom Filt Rate - Afr Amer 116 mL/min (>60); Estimated Creatinine Clearance 98.19 ml/min; Glucose 103 mg/dL (74-106); Potassium 4.4 mmol/L (3.5-5.1); Sodium Level 140 mmol/L (136-145); Troponin-I HS 6 pg/mL (3.0-78.0)
--- NOTE | 2021-09-23 11:06 | EDS_ITS ---
HPI History of Present Illness Chief Complaint: Chest Pain Informant: patient Onset/Context/Timing Onset: Yesterday Activity at onset: gradual Timing: Continuous Quality: Positive for Tightness Location: Left Chest Worsened By: Nothing Relieved By: NTG Associated Symptoms: Positive for Nausea, Diaphoresis, Dyspnea, Lightheadedness and Acid Reflux; Negative for Vomiting, Cough, Fever and Palpitations Narrative Narrative: Patient presents with nausea and chest pain that began yesterday afternoon. Patient states he had appoint with Dr. Wilkinson yesterday afternoon. Patient states his symptoms started after he got home from that appointment. Patient states he had nausea prior to his last heart attack. Patient states that he was going to go fishing today and felt nauseated. Patient states that he took a nitroglycerin tablet and his nausea improved. Patient also admits to some tightness in his chest that resolved with the nitroglycerin tablet. Patient states nothing makes his symptoms worse. Patient denies any vomiting. Patient states he did break out into a sweat. Patient admits to some shortness of breath. Patient also admits to some lightheadedness. PE Risk Factors: Negative for Recent Travel/Surgery, Prior DVT or PE, Cancer and OCP + Smoking + >/=35 PFSH PFSH Medical History Abnormal pulmonary function test Abnormal stress test Atherosclerotic heart disease of [place] coronary artery without angina pectoris BMI 34.0-34.9,adult Chest pain Cold feet Hyperlipidemia Ischemic cardiomyopathy Neuropathy Old myocardial infarction (~2011) MARGY (obstructive sleep apnea) Presence of stent in coronary artery (~03/23/21) Home Medications aspirin 81 mg PO DAILY@0800 #0 tab 03/24/21 [Rx Last Taken Unknown] nitroglycerin 0.4 mg SUBLINGUAL Q5M PRN #90 tab 03/24/21 [Rx Last Taken Unknown] clopidogrel 75 mg tablet 75 mg PO DAILY #90 tab 05/09/21 [Rx Last Taken Unknown] metoprolol succinate 25 mg tablet,extended release 24 hr 25 mg PO DAILY #90 tab 07/11/21 [Rx Last Taken Unknown] atorvastatin 40 mg tablet 40 mg PO QHS #1 tab 09/22/21 [Rx Last Taken Unknown] Allergy/AdvReac Type Severity Reaction Status Date / Time No Known Allergies Allergy Verified 09/23/21 09:58 Family History Father CAD (coronary artery disease) Myocardial infarction, Onset Age: 50 Diabetes Uncle CAD (coronary artery disease) Myocardial infarction, Onset Age: 50 Grandfather CAD (coronary artery disease) Myocardial infarction, Onset Age: 44 Uncle Heart disease 2 heart transplants Surgical History History of spinal surgery (~2013) Presence of coronary angioplasty implant and graft (~03/23/21) Vocal cord polyp Social History Smoking Status: Former smoker alcohol intake: former year quit: 2006 details: Heavy drinker in the past substance use type: does not use caffeine: Yes Type: coffee Number of servings: 1 ROS ROS ED Constitutional Constitutional ED: Denies chills or fever(s) Eyes Eyes: Denies blurry vision or change in vision ENT ENT ED: Reports rhinorrhea; Denies sore throat Cardiovascular Cardiovascular: Reports chest pain; Denies palpitations Respiratory/Chest Respiratory/Chest: Reports dyspnea; Denies cough Gastrointestinal Gastrointestinal: Reports nausea; Denies abdominal pain or vomiting Genitourinary Genitourinary ED: Denies dysuria or hematuria Musculoskeletal Musculoskeletal: Reports back pain and neck pain Integumentary Denies abscess or rash Neurologic Neurologic: Denies headache(s) or weakness Allergic/Immunologic Allergic/Immunologic ED: Denies mouth swelling or urticaria EXAM Physical Exam Const Vital Signs: 09/23/21 09:56 09/23/21 10:02 09/23/21 10:08 Temperature 97.0 F L Temperature Source Temporal Pulse Rate 76 Respiratory Rate 18 Respiratory Effort Normal Non-Labored Blood Pressure 112/87 H Blood Pressure Mean 95 Pulse Ox 96 95 Oxygen Delivery Method Room Air Room Air 09/23/21 10:44 09/23/21 11:22 Temperature Temperature Source Pulse Rate 75 69 Respiratory Rate 13 17 Respiratory Effort Blood Pressure 113/77 125/86 H Blood Pressure Mean 89 99 Pulse Ox 96 96 Oxygen Delivery Method Room Air Room Air Positive well nourished and well developed General Appearance ED: well developed HEENT normocephalic and atraumatic Eyes PERRL and EOMs intact bilaterally Neck supple and no JVD Chest Wall palpation of chest normal Resp normal respiratory effort and clear to auscultation bilaterally Effort and Inspection: Negative for respiratory distress Cardio regular rate, regular rhythm and no murmurs GI normal to inspection, nondistended, normoactive bowel sounds, soft to palpation, non-tender and non-distended Extremity normal to inspection General Extremety ED: Negative for edema or tenderness General Extremity: Negative for edema Neuro oriented x3, CN's II-XII intact bilaterally and no sensory deficits noted Sensorium / Orientation: awake and alert Motor Exam: strength 5/5 throughout Psych mental status grossly normal Heart Score History: Moderately Suspicious ECG: Normal Age: >45 - <65 years Risk Factors: >/= 3 Risk Factors or History of CAD Troponin: </= Normal Limit Score: 4 MDM MDM MDM Narrative Medical decision making narrative: Patient was given aspirin. EKG was obtained. On my interpretation, it showed a normal sinus rhythm with a rate of 67. WA interval, QRS interval, and QTc intervals were all normal. [place] was normal. There are no acute ST or T wave changes. Portable 1 view chest x-ray was obtained. On my interpretation, lung cheema are clear. There is normal cardiac silhouette. Bony thorax is normal. There is no acute process noted. Radiologist also interpreted the x-ray and agrees. CBC and basic metabolic profile were obtained were within normal limits. High-sensitivity troponin was normal. PT with INR was normal. Case was discussed with Dr. Wilkinson. He requested the patient be admitted to the hospitalist. He will try to take patient to the [facility] this afternoon. Case was discussed with the hospitalist. She will admit the patient to PCU for observation. Patient understood and was agreeable with the plan. All questions were answered. Lab Data Attestation: I reviewed the patient's lab results. Labs: Laboratory Results - last 24 hr 09/23/21 09/23/21 09/23/21 10:06 10:06 10:06 WBC 6.7 RBC 5.31 Hgb 16.2 Hct 47.7 MCV 89.8 MCH 30.5 MCHC 34.0 RDW Std Deviation 40.7 RDW Coeff of [place]son 12.4 Plt Count 207 MPV 9.5 Immature Gran % (Auto) 2.700 H Neut % (Auto) 60.4 Lymph % (Auto) 22.6 [place] % (Auto) 10.0 Eos % (Auto) 3.3 Baso % (Auto) 1.0 Absolute Neuts (auto) 4.1 Absolute Lymphs (auto) 1.52 Nucleated RBC % 0 PT 12.9 INR 1.0 Sodium 140 Potassium 4.4 Chloride 106 Carbon Dioxide 29.0 Anion Gap 5 BUN 9 Creatinine 0.88 Estim Creat Clear Calc 98.19 Est GFR (MDRD) Af Amer 116 Est GFR (MDRD) Non-Af 96 BUN/Creatinine Ratio 10.2 Glucose 103 Calcium 9.1 Troponin I High Sens 6 Radiography Chest X-Ray - ED: 1 View, Read by ED Physician, Read by Radiologist and Normal Diagnostic Testing: Clinical Impression(s) from Imaging Studies Chest X-Ray 09/23/21 10:05 IMPRESSION: Normal x-ray examination of the chest. Electronically Signed: Humberto Deutsch MD at 10:25 EST , Service support , EKG Initial EKG: Attestation: I personally reviewed and interpreted this EKG as follows: Interpretation: Sinus Rhythm (67) and No Acute Injury Pattern Discharge Plan Triage Chief Complaint: Chest Pain ED Provider: Dima Martinez Dx/Rx/DC Orders Clinical Impression: Chest pain Primary Care Provider: Saravanan Chavarria Disposition Disposition: Acute [facility]
[2021-09-23 11:22] VITALS: BP 125/86; PULSE 69; RESP 17; O2SAT 96
[2021-09-23] MEDS: Aspirin 81 MG TAB.CHEW 324 MG PO (11:23)
--- NOTE | 2021-09-23 11:48 | HP.PCM.HOS_ITS ---
HPI - General General Date of Admission: 09/23/21 Date of Service: 09/23/21 Chief Complaint: Chest pain HPI Narrative ANDREW BROOKS, is a 51 M who presented to the emergency department [facility] on 09/23/2021 with a chief complaint of chest pain,nausea, and diaphoresis. Patient reports his symptoms actually started yesterday. He saw Dr. Wilkinson in his office in the morning and then was driving up to [employer] to go fishing when he experienced some nausea and some chest tightness on the left side of his chest. He has a known history of coronary disease for which she has had stents placed. His most recent stent was placed in March 2021. He is compliant with his home medications. He states the episode that he experienced was very similar to his previous episodes when he received stents. Given that his symptoms were similar he took a nitroglycerin tablet and began to feel better with resolution of his nausea and chest pain. He came home and had no further symptoms until this morning when his nausea and chest pain started up again. He called Dr. Wilkinson's office and they recommended coming to the emergency depa rtment. He was given nitroglycerin in the emergency department and his symptoms have subsequently resolved. He is currently asymptomatic. His vital signs are stable. His CBC is unremarkable. His coags are normal. His BMP is unremarkable. His initial troponin was 6. His chest x-ray showed no acute processes. His EKG shows some mild J-point elevation in V2 and V3. I do not have a previous to compare. As noted above he had his most recent stent in 03/2021 at which time he received a distal RCA ALON. His ejection fraction at that time was 45%. The case was discussed by the emergency department physician with Dr. Wilkinson and he recommended admission and the patient will likely be taken to the [facility] for left heart cath this afternoon. FOR[facility]LY [facility], [facility] Medical History Abnormal pulmonary function test Abnormal stress test Atherosclerotic heart disease of [place] coronary artery without angina pectoris BMI 34.0-34.9,adult Chest pain Cold feet Hyperlipidemia Ischemic cardiomyopathy Neuropathy Old myocardial infarction (~2011) MARGY (obstructive sleep apnea) Presence of stent in coronary artery (~03/23/21) Home Medications aspirin 81 mg PO DAILY@0800 #0 tab 03/24/21 [Rx Last Taken Unknown] nitroglycerin 0.4 mg SUBLINGUAL Q5M PRN #90 tab 03/24/21 [Rx Last Taken Unknown] clopidogrel 75 mg tablet 75 mg PO DAILY #90 tab 05/09/21 [Rx Last Taken Unknown] metoprolol succinate 25 mg tablet,extended release 24 hr 25 mg PO DAILY #90 tab 07/11/21 [Rx Last Taken Unknown] atorvastatin 40 mg tablet 40 mg PO QHS #1 tab 09/22/21 [Rx Last Taken Unknown] Allergy/AdvReac Type Severity Reaction Status Date / Time No Known Allergies Allergy Verified 09/23/21 09:58 Family History Father CAD (coronary artery disease) Myocardial infarction, Onset Age: 50 Diabetes Uncle CAD (coronary artery disease) Myocardial infarction, Onset Age: 50 Grandfather CAD (coronary artery disease) Myocardial infarction, Onset Age: 44 Uncle Heart disease 2 heart transplants Surgical History History of spinal surgery (~2013) Presence of coronary angioplasty implant and graft (~03/23/21) Vocal cord polyp Social History Smoking Status: Former smoker alcohol intake: former year quit: 2006 details: Heavy drinker in the past substance use type: does not use caffeine: Yes Type: coffee Number of servings: 1 ROS Constitutional Constitutional: Denies anorexia, change in weight, chills, fatigue, fever(s), malaise, night sweats, weakness or other Eyes Eyes: Denies blurry vision, change in eye color, change in vision, discharge from eye(s), double vision, erythema, eye pain, loss of vision or other ENT HEENT: Denies abnormal hearing, dysphagia, ear pain, epistaxis, headache(s), hearing loss, nasal congestion, nasal discharge, post nasal drip, sinus p ressure, sore throat or other Cardiovascular Cardiovascular: Reports chest pain and other Details: Diaphoresis ; Denies claudication, dyspnea on exertion, edema, lightheadedness, orthopnea, palpitations, paroxysmal nocturnal dyspnea, rapid heart rate or syncope Respiratory/Chest Respiratory/Chest: Denies cough, dyspnea, excessive phlegm production, hemoptysis, productive cough, shortness of breath at rest, shortness of breath with exertion, wheezing or other Gastrointestinal Gastrointestinal: Reports nausea; Denies abdominal pain, coffee ground emesis, constipation, diarrhea, dyspepsia, hematemesis, hematochezia, loose stools, melena, vomiting or other Genitourinary Genitourinary: Denies burning urination, difficulty urinating, dysuria, hematuria, nocturia, urinary frequency, urinary hesitancy, urinary incontinence, urinary urgency or other Musculoskeletal Musculoskeletal: Reports neck pain; Denies arthralgias, back pain, joint pain, joint stiffness, joint swelling, myalgias or other Neurologic Neurologic: Denies abnormal gait, abnormal speech, confusion, disequilibrium, dizziness, focal weakness, headache(s), numbness, paresthesias, seizure-like a ctivity, seizures, syncope, tingling, tremor(s) or other Psychiatric Psychiatric: Denies anxiety, depression, homicidal ideation, suicidal ideation or other Endocrine Endocrinology: Denies change in body appearance, cold intolerance, excessive sweating, heat intolerance, polydipsia, polyuria or other Hematologic/Lymphatic Hematologic/Lymphatic: Denies anemia, easy bleeding, easy bruising, lymphadenopathy or other Allergic/Immunologic Allergic/Immunologic: Denies rhinitis, hives, eczemia, asthma or other Vital Signs Vital Signs Vital Signs: 09/23/21 09:56 09/23/21 10:02 09/23/21 10:08 Temperature 97.0 F L Temperature Source Temporal Pulse Rate 76 Respiratory Rate 18 Respiratory Effort Normal Non-Labored Blood Pressure 112/87 H Blood Pressure Mean 95 Pulse Ox 96 95 Oxygen Delivery Method Room Air Room Air 09/23/21 10:44 09/23/21 11:22 Temperature Temperature Source Pulse Rate 75 69 Respiratory Rate 13 17 Respiratory Effort Blood Pressure 113/77 125/86 H Blood Pressure Mean 89 99 Pulse Ox 96 96 Oxygen Delivery Method Room Air Room Air Weight Weight: 104.326 kg Body Mass Index (BMI) 34.0 Physical Exam Const alert, oriented x3 and no apparent distress Constitutional Narrative: Obese middle-aged white male sitting up in bed, appears comfortable, nontoxic General Appearance: cooperative HEENT normocephalic, head/scalp atraumatic, hearing grossly normal bilaterally and moist oral mucous membranes HEENT Narrative: Mallampati 3, no thrush Resp normal respiratory effort, no retractions, no use of accessory muscles and clear to auscultation bilaterally Auscultation: Negative for crackles, rales, rhonchi or wheezes Cardio regular rate, regular rhythm, S1 normal heart sound, S2 normal heart sound, no murmurs, no rub, no gallops, no clicks and no JVD GI normal to inspection, nondistended, normoactive bowel sounds, soft to palpation, non-tender and non-distended Extremity no clubbing, cyanosis or edema Peripheral Pulses: Yes pulses 2+ throughout Neuro oriented x3, CN's II-XII intact bilaterally, moves all extremities and no focal motor deficits Sensorium / Orientation: awake and alert Speech: speech normal Psych affect normal Results Lab / Micro Data Attestation: I reviewed the patient's lab results. Result Diagrams: 09/23/21 10:06 09/23/21 10:06 Labs: Laboratory Results - last 24 hr 09/23/21 10:06: WBC 6.7, RBC 5.31, Hgb 16.2, Hct 47.7, MCV 89.8, MCH 30.5, MCHC 34.0, RDW Std Deviation 40.7, RDW Coeff of [place]son 12.4, Plt Count 207, MPV 9.5, Immature Gran % (Auto) 2.700 H, Neut % (Auto) 60.4, Lymph % (Auto) 22.6, [place] % (Auto) 10.0, Eos % (Auto) 3.3, Baso % (Auto) 1.0, Absolute Neuts (auto) 4.1, Absolute Lymphs (auto) 1.52, Nucleated RBC % 0 09/23/21 10:06: Sodium 140, Potassium 4.4, Chloride 106, Carbon Dioxide 29.0, Anion Gap 5, BUN 9, Creatinine 0.88, Estim Creat Clear Calc 98.19, Est GFR (MDRD) Af Amer 116, Est GFR (MDRD) Non-Af 96, BUN/Creatinine Ratio 10.2, Glucose 103, Calcium 9.1, Troponin I High Sens 6 09/23/21 10:06: PT 12.9, INR 1.0 Micro: Microbiology 09/23/21 10:40 Nasal Secretion SARS-CoV-2 Antigen (Rapid) - Final Radiology Impression Chest X-Ray 09/23/21 10:05 IMPRESSION: Normal x-ray examination of the chest. Electronically Signed: Humberto Deutsch MD at 10:25 EST , Service support , Assessment & Plan Assessment/Plan (1) Unstable angina: PLAN: Unstable angina -Cycle cardiac enzymes -Continue atorvastatin, aspirin, Plavix, metoprolol -As needed sublingual nitroglycerin as patient is asymptomatic at this time -Left heart cath this afternoon -Cardiology consultation Ischemic cardiomyopathy -Underlying EF is 45% -Continue goal-directed therapy as prescribed by cardiology Hyperlipidemia -Continue statin -Check lipids--> last lipid profile in our system was from March 11, 2021 Obesity -Recommend weight loss -Complicates overall treatment, prognosis, outcomes -BMI 34.0 DVT prophylaxis -Lovenox CODE STATUS -Full code Charges/Coding Visit Charges Inpatient E&M: 02791 Init Hosp L2
--- NOTE | 2021-09-23 12:01 | CON.PCM.CA_ITS ---
Documented by User: Ruba GORDON, PA 09/23/21 12:26 Assessment & Plan Assessment/Plan (1) Unstable angina: PLAN: * concerned that symptoms are unstable angina * pt on ASA, Plavix at home * with is symptoms and hx of premature CAD would like to proceed with heart cath today to further assess (2) Presence of stent in coronary artery: PLAN: * Pt is on maximum medical therapy on OP basis (3) Ischemic cardiomyopathy: PLAN: * Pt currently does not have any symptoms. reviewed Echo from 2019, at this time do not feel that he needs an echo * for now will continue with home medications (4) Hyperlipidemia: QUALIFIERS: Hyperlipidemia type: unspecified Qualified Code(s): E78.5 - Hyperlipidemia, unspecified PLAN: * pt will continue with current dose of atorvastatin HPI Consult Data Date of Consult: 09/23/21 HPI Narrative HPI Narrative: ANDREW BROOKS, is a 51 M who presented to the ER chest pain. He has a hx of history of premature CAD status post RCA PTCA/stent (2011 and RCA PTCA/stent (03-23-2021 superimposed upon an ischemic mediated cardiomyopathy and hyperlipidemia. He was in the office yesterday noting that he had some vague CP 2 months ago and did not need to use NTG. He was asked to monitor this closely. He noted that yesterday after his OV he developed nausea. He notes that his arm bilateral will go numb where he needs to take his watch off. This morning on his way [place] to [place], he was supposed to go fishing. He noted that he was nauseated, had chest heaviness and just did not feel well. He then took one NTG, had abdominal pain, felt flushed but his CP resolved. He called the office, was advised to go to the Er for further evaluation. [facility] Medical History Abnormal pulmonary function test Abnormal stress test Atherosclerotic heart disease of [place] coronary artery without angina pectoris BMI 34.0-34.9,adult Chest pain Cold feet Hyperlipidemia Ischemic cardiomyopathy Neuropathy Old myocardial infarction (~2011) MARGY (obstructive sleep apnea) Presence of stent in coronary artery (~03/23/21) Home Medications aspirin 81 mg PO DAILY@0800 #0 tab 03/24/21 [Rx Last Taken Unknown] nitroglycerin 0.4 mg SUBLINGUAL Q5M PRN #90 tab 03/24/21 [Rx Last Taken Unknown] clopidogrel 75 mg tablet 75 mg PO DAILY #90 tab 05/09/21 [Rx Last Taken Unknown] metoprolol succinate 25 mg tablet,extended release 24 hr 25 mg PO DAILY #90 tab 07/11/21 [Rx Last Taken Unknown] atorvastatin 40 mg tablet 40 mg PO QHS #1 tab 09/22/21 [Rx Last Taken Unknown] Allergy/AdvReac Type Severity Reaction Status Date / Time No Known Allergies Allergy Verified 09/23/21 09:58 Family History Father CAD (coronary artery disease) Myocardial infarction, Onset Age: 50 Diabetes Uncle CAD (coronary artery disease) Myocardial infarction, Onset Age: 50 Grandfather CAD (coronary artery disease) Myocardial infarction, Onset Age: 44 Uncle Heart disease 2 heart transplants Surgical History History of spinal surgery (~2013) Presence of coronary angioplasty implant and graft (~03/23/21) Vocal cord polyp Social History Smoking Status: Former smoker alcohol intake: former year quit: 2006 details: Heavy drinker in the past substance use type: does not use caffeine: Yes Type: coffee Number of servings: 1 ROS Constitutional Constitutional: Denies chills, fatigue or lethargy Eyes Eyes: Reports systems reviewed and no addt'l complaints, except as documented ENT HEENT: Reports systems reviewed and no addt'l complaints, except as documented Cardiovascular Cardiovascular: Reports as per HPI Respiratory/Chest Respiratory/Chest: Denies cough, shortness of breath at rest or shortness of breath with exertion Gastrointestinal Gastrointestinal: Reports abdominal pain, heartburn and nausea; Denies hematemesis Musculoskeletal Musculoskeletal: Reports as per HPI and arthralgias Neurologic Neurologic: Reports systems reviewed and no addt'l complaints, except as documented Risk Stratification Risk Stratification Applicable: Yes Age >/= 65: No >/= 3 CAD Risk Factors (HTN, HLD, DM, family hx of CAD, or current smoker): Yes Aspirin Use in the Past 7 Days: Yes Severe Angina (>/= episodes in 24 hours): Yes EKG ST Changes >/= 0.5mm: No Positive Cardiac Marker: No ALVARADO Risk Stratification Score: 3 ALVARADO % Risk: 13% Risk Objective Data Vital Signs: Vital Signs Temp Pulse Resp BP Pulse Ox 97.0 F L 69 17 125/86 H 96 09/23/21 09:56 09/23/21 11:22 09/23/21 11:22 09/23/21 11:22 09/23/21 11:22 Oxygen Delivery Method Room Air Weight: 230 lb Body Mass Index (BMI) 34.0 Lab / Micro Data Result Diagrams: 09/23/21 10:06 09/23/21 10:06 Labs: Laboratory Results - last 24 hr 09/23/21 10:06: WBC 6.7, RBC 5.31, Hgb 16.2, Hct 47.7, MCV 89.8, MCH 30.5, MCHC 34.0, RDW Std Deviation 40.7, RDW Coeff of Gilson 12.4, Plt Count 207, MPV 9.5, Immature Gran % (Auto) 2.700 H, Neut % (Auto) 60.4, Lymph % (Auto) 22.6, [place] % (Auto) 10.0, Eos % (Auto) 3.3, Baso % (Auto) 1.0, Absolute Neuts (auto) 4.1, Absolute Lymphs (auto) 1.52, Nucleated RBC % 0 09/23/21 10:06: Sodium 140, Potassium 4.4, Chloride 106, Carbon Dioxide 29.0, Anion Gap 5, BUN 9, Creatinine 0.88, Estim Creat Clear Calc 98.19, Est GFR (MDRD) Af Amer 116, Est GFR (MDRD) Non-Af 96, BUN/Creatinine Ratio 10.2, Glucose 103, Calcium 9.1, Troponin I High Sens 6 09/23/21 10:06: PT 12.9, INR 1.0 Micro: Microbiology 09/23/21 10:40 Nasal Secretion SARS-CoV-2 Antigen (Rapid) - Final Cardiology Labs/Tests 09/23/21 10:06: WBC 6.7, RBC 5.31, Hgb 16.2, Hct 47.7, MCV 89.8, MCH 30.5, MCHC 34.0, Plt Count 207, MPV 9.5, Immature Gran % (Auto) 2.700 H, Neut % (Auto) 60.4, Lymph % (Auto) 22.6, [place] % (Auto) 10.0, Eos % (Auto) 3.3, Baso % (Auto) 1.0, Absolute Neuts (auto) 4.1, Nucleated RBC % 0 09/23/21 10:06: Sodium 140, Potassium 4.4, Chloride 106, Carbon Dioxide 29.0, Anion Gap 5, BUN 9, Creatinine 0.88, Est GFR (MDRD) Af Amer 116, Est GFR (MDRD) Non-Af 96, BUN/Creatinine Ratio 10.2, Glucose 103, Calcium 9.1 09/23/21 10:06: PT 12.9, INR 1.0 Rhythm: SR EKG: preliminary NSR ECHO: 02-19-19 Borderline enlarged left ventricle. Mild segmental systolic dysfunction (see wall motion). The estimated ejection fraction is 50 %. Trivial mitral valve insufficiency. Trivial tricuspid valve insufficiency. No evidence for diastolic dysfunction. Stress Test Report Date: 03-11-2021 Procedure: Exercise tolerance test/imaging study Indications: CAD; PCI; [employer] CDL requirement Consent: Per the patient Procedure: The patient exercised on a Brian protocol for 10 minutes and 30 seconds completing Stage III and 1 minute and 30 seconds of Stage IV achieving a peak heart rate of 142 bpm (84% predicted maximal heart rate) with a peak blood pressure 150/72 mmHg and a peak MET capacity of 12 METs. The baseline ECG demonstrated sinus bradycardia. The peak exercise ECG de monstrated somatic/motion artifact with no obvious ECG changes. There was a rare to occasional PVC during exercise and recovery. The functional capacity was considered good. There was no complaint of chest discomfort during exercise or recovery. The examination was discontinued secondary to dyspnea. Impression: 1. Technically adequate (percent predicted maximal heart rate greater than 85%) exercise tolerance test 2. Peak exercise ECG with somatic/motion artifact with no obvious ECG changes 3. There was a rare to occasional PVC during exercise and recovery 4. Nuclear images pending Myocardial perfusion imaging study: Technique: The patient was injected with 14.3 mCi of technetium 99m Cardiolite and subsequently rest SPECT Cardiolite nuclear imaging was obtained in the horizonta l long, vertical long, and short axis views. The patient exercised on a Brian protocol for 10 minutes and 30 seconds completing Stage III and 1 minute and 30 seconds of Stage IV achieving a peak heart rate of 142 bpm (84% predicted maximal heart rate) with a peak blood pressure 150/72 mmHg and a peak MET capacity of 12 METs. The patient was injected with 45.0 mCi of technetium 99m Cardiolite and subsequently stress SPECT Cardiolite nuclear imaging was obtained in the horizontal long, vertical long, and short axis views. A gated Cardiolite study at peak stress was obtained. Interpretation: Rest and stress SPECT Cardiolite nuclear imaging status post realignment, normalization, and attenuation correction, demonstrates the appearance at rest of relative uniform tracer uptake and following stress the appearance of diminished tracer uptake in portions of the mid inferior segments. There is diminished end systolic thickening and brightening. The gated Cardiolite study demonstrates myocardial thickening and inward wall motion. The reported LVEF is 49%. Impression: 1. Rest and stress SPECT Cardiolite nuclear imaging demonstrate myocardial perfusion changes concerning for an area of stress-induced myocardial ischemia in portions of the mid inferior segments. 2. The gated Cardiolite study reports an LVEF of 49%. Cardiac Cath: Elevated Left Ventricular End Diastolic Pressure Segmented LV systolic dysfunction- Mild LVEF: by LV gram 45 % [place] Multivessel CAD RCA: stents: patent RECOMMENDATIONS Medical therapy Referred for immediate PCI CORONARY ANGIOGRAPHY DOMINANCE: Right Dominant LEFT HEART ASSESSMENT Left Ventricular Ejection Fraction: by LV Gram 45 % Inferior Basal Hypokinesis. Inferior Mid Hypokinesis Elevated Left Ventricular End Diastolic Pressure LVEDP: 21 mmHg LEFT MAIN: Angiographically normal LEFT ANTERIOR DESCENDING ARTERY: Angiographically normal CIRCUMFLEX ARTERY: PROX CIRC: Mild luminal irregularities OM 1: Ostial - short small caliber vessel: 50 % Stenosis RAMUS: Angiographically normal RIGHT CORONARY ARTERY: PROX RCA: Previously placed stent is patent MID RCA: Previously placed stent is patent DISTAL RCA: eccentric: hazy: 90 % Stenosis AORTIC ROOT: Angiographically normal Radiography Diagnostic Testing: Radiology Impression Chest X-Ray 09/23/21 10:05 IMPRESSION: Normal x-ray examination of the chest. Electronically Signed: Humberto Deutsch MD at 10:25 EST , Service support , Documented by User: Dr. Fernando Wilkinson MD 09/23/21 12:37 Assessment & Plan Addt'l Comments Addendum: The patient was already evaluated and examined. Since the patient's outpatient cardiovascular visit of yesterday he stated he began to have concerns of nausea similar to what he experienced in the past with his underlying CAD process. He states he was not feeling well and was subsequently using nitroglycerin sublingual tablets. He believes these helped with his discomforts. He elected not to do continue his outpatient activities of the day. He contacted the office and based upon his ongoing concerns was directed to the [facility] emergency department for further evaluation. In the emergency department his cardiac enzymes were negative. His ECG demonstrated sinus rhythm with no acute ECG changes. On examination his lungs are clear to auscultation percussion bilaterally. His cardiovascular exam demonstrates a regular rhythm with a normal S1 and S2. Overall he does have a history of CAD status post RCA PCI. He has symptoms at this time concerning for unstable angina pectoris. This is superimposed upon his history of underlying ischemic mediated cardiomyopathy and hyperlipidemia. He has been recommended for continued medical therapy and reevaluation in the cardiac catheterization laboratory. The procedure and risk were discussed with him and he was agreeable to this approach. The patient's case has been discussed and reviewed with HEIDI Cabrera. This note was generated using a voice recognition system and there may be incorrect words, spelling or punctuation that were not noted when reviewing the office note prior to saving. HPI Consult Data Date of Consult: 09/23/21 [facility] Medical History Abnormal pulmonary function test Abnormal stress test Atherosclerotic heart disease of [place] coronary artery without angina pectoris BMI 34.0-34.9,adult Chest pain Cold feet Hyperlipidemia Ischemic cardiomyopathy Neuropathy Old myocardial infarction (~2011) MARGY (obstructive sleep apnea) Presence of stent in coronary artery (~03/23/21) Home Medications aspirin 81 mg PO DAILY@0800 #0 tab 03/24/21 [Rx Last Taken Unknown] nitroglycerin 0.4 mg SUBLINGUAL Q5M PRN #90 tab 03/24/21 [Rx Last Taken Unknown] clopidogrel 75 mg tablet 75 mg PO DAILY #90 tab 05/09/21 [Rx Last Taken Unknown] metoprolol succinate 25 mg tablet,extended release 24 hr 25 mg PO DAILY #90 tab 07/11/21 [Rx Last Taken Unknown] atorvastatin 40 mg tablet 40 mg PO QHS #1 tab 09/22/21 [Rx Last Taken Unknown] Allergy/AdvReac Type Severity Reaction Status Date / Time No Known Allergies Allergy Verified 09/23/21 09:58 Family History Father CAD (coronary artery disease) Myocardial infarction, Onset Age: 50 Diabetes Uncle CAD (coronary artery disease) Myocardial infarction, Onset Age: 50 Grandfather CAD (coronary artery disease) Myocardial infarction, Onset Age: 44 Uncle Heart disease 2 heart transplants Surgical History History of spinal surgery (~2013) Presence of coronary angioplasty implant and graft (~03/23/21) Vocal cord polyp Social History Smoking Status: Former smoker alcohol intake: former year quit: 2006 details: Heavy drinker in the past substance use type: does not use caffeine: Yes Type: coffee Number of servings: 1 Physical Exam Const alert, oriented x3, no apparent distress, healthy appearing and well nourished General Appearance: cooperative, well kempt and well developed HEENT normocephalic, head/scalp atraumatic and hearing grossly normal bilaterally Eyes PERRL, EOMs intact bilaterally and conjunctivae normal Neck full ROM Chest Chest: symmetrical chest wall rise Resp clear to auscultation bilaterally Cardio regular rate, regular rhythm, S1 normal heart sound and S2 normal heart sound GI normal to inspection, nondistended, normoactive bowel sounds Extremity no pedal edema Skin no rashes or lesions noted Psych mental status grossly normal Procedure Criteria Type of Procedure Procedure Type: Elective Elective Risks - COVID COVID Risk Discussion: The surgeon/proceduralist and patient have discussed in detail the risk of exposure to and/or potential harm posed by the COVID-19 virus with having a surgery/procedure at this time versus the risk of delaying the surgery/procedure. It is not possible to know either the risk of delaying the surgery or procedure or chance of getting an infection with perfect accuracy, but a joint decision was made between the patient and the surgeon/proceduralist to proceed at this time with the scheduled surgery/procedure as indicated on the consent form. Lab / Micro Data Result Diagrams: 09/23/21 10:06 09/23/21 10:06
[2021-09-23 12:05] VITALS: BP 123/78; PULSE 76; RESP 16; TEMP 36.6; O2SAT 98
[2021-09-23 12:33] LABS: Troponin-I HS 3 pg/mL (3.0-78.0)
--- NOTE | 2021-09-23 12:45 | CASEMGMT ---
According to the [employer] website, the following are in-network tertiary facilities: [facility], [place], [facility], [facility], [facility], and . Hieu CHANDRA CM
--- NOTE | 2021-09-23 13:25 | CL.D_ITS ---
Patient Name: ANDREW BROOKS Study Date: 09/23/2021 Performing: Fernando Wilkinson MD Ht: 68.89 inches 175 cm : 1970 Wt: 229.28 lbs 104 kg Age: 51 Gender: male BSA: 2.19 PROCEDURE(S) PERFORMED [id number]/LV [id number] CLINICAL PROFILE AND INDICATIONS Indications: Worsening Angina Heart Failure: None Stress/Imaging Stress/Image Study Performed: No Angina Classification Anginal Classification w/in 2 Weeks: CCS IV CAD Presentations: Unstable angina. CONCLUSIONS Elevated Left Ventricular End Diastolic Pressure Segmented LV systolic dysfunction- Mild LVEF: by LV gram 50 % Double vessel CAD of the LCX and RCA (see below) RCA: stents: patent RECOMMENDATIONS Risk factor modification Medical therapy DESCRIPTION OF PROCEDURE The patient arrived to the procedure lab. The risks and benefits of the procedure as well as a full d escription of our services here and current unavailability of surgical backup were fully explained to the patient and/or their significant other prior to the catheterization. The Timeout was completed, verifying the correct patient and procedure. The patient's procedural site was prepped and draped in the usual fashion. Local anesthetic was given subcutaneously to right radial region with Lidocaine 2% . Using a modified Seldinger technique, arterial access was obtained via the right radial artery, a 6 Fr sheath was inserted. Left Coronary Artery selective angiography was performed in multiple views u sing a 5 Fr. 4.0 Duncombe catheter. Right Coronary Artery selective angiography was then performed in mu ltiple views using a 5 Fr. 4.0 [place] catheter. Left Ventriculography was performed in WHEATLEY projection using a 5 Fr. Pigtail catheter. LV to AO pullback pressures were then recorded.The arterial sheath was pulled and a TR Band was applied for hemostasis. 12cc of air CORONARY ANGIOGRAPHY DOMINANCE: Right Dominant LEFT HEART ASSESSMENT Left Ventricular Ejection Fraction: by LV Gram 50 % Inferior Basal Hypokinesis. Inferior Mid Hypokinesis. Inferior Apical Hypokinesis Elevated Left Ventricular End Diastolic Pressure LVEDP: 21 mmHg LEFT MAIN: Angiographically normal LEFT ANTERIOR DESCENDING ARTERY: Angiographically normal CIRCUMFLEX ARTERY: PROX CIRC: Mild luminal irregularities RAMUS: Angiographically normal RIGHT CORONARY ARTERY: PROX RCA: Previously placed stent is patent MID RCA: Previously placed stent is patent DISTAL RCA: Previously placed stent is patent AORTIC ROOT: Angiographically normal COMPLICATIONS No Complications PROCEDURE MEDICATIONS Fentanyl 50 mcg IV Versed 1 mg IV Oxygen: 2 L/min via nasal cannula Heparin given IA 09/23/2021 12:43:34 Verapamil 2.5mg, Ntg 100mcgs, 3000 units of Heparin given IA 09/23/2021 12:43:34 SUMMARY OF HEMODYNAMIC DATA Time AIR REST ECG 12:31:06 Art 118/66 (87) 12:40:48 AO 85/63 (74) SA 12:46:06 LV 119/3, 21 12:53:25 LV 110/7, 21 12:53:32 LV 114/1, 23 12:55:42 LVp 116/5, 24 12:55:47 AOp 108/42 (78) 12:55:52 Signed By Fernando Wilkinson MD On 09/23/2021 13:24:20 Fernando Wilkinson MD
--- NOTE | 2021-09-23 13:52 | DS.PCM_ITS ---
Providers Date of Admission: 09/23/21 Primary Care Physician: Dr. Saravanan Chavarria MD Reason For Visit: chest pain Diagnosis Discharge Diagnosis (1) Unstable angina: Status: Acute Code(s): I20.0 - Unstable angina (2) Presence of stent in coronary artery: Status: Chronic Code(s): Z95.5 - Presence of coronary angioplasty implant and graft (3) Ischemic cardiomyopathy: Status: Chronic Code(s): I25.5 - Ischemic cardiomyopathy (4) Hyperlipidemia: Status: Chronic Code(s): E78.5 - Hyperlipidemia, unspecified Qualifiers: Hyperlipidemia type: unspecified Qualified Code(s): E78.5 - Hyperlipidemia, unspecified Medications at Discharge Home Medications aspirin 81 mg PO DAILY@0800 #0 tab 03/24/21 nitroglycerin 0.4 mg SUBLINGUAL Q5M PRN #90 tab 03/24/21 clopidogrel 75 mg tablet 75 mg PO DAILY #90 tab 05/09/21 metoprolol succinate 25 mg tablet,extended release 24 hr 25 mg PO DAILY #90 tab 07/11/21 atorvastatin 40 mg tablet 40 mg PO QHS #1 tab 09/22/21 Hospital Course Summary of Care Provided Minutes Spent on Discharge: 22 Hospital Course: ANDREW BROOKS, is a 51 M who presented to the emergency department [facility] on 09/23/2021 with a chief complaint of chest pain,nausea, and diaphoresis. Patient reports his symptoms actually started yesterday. He saw Dr. Wilkinson in his office in the morning and then was driving up to [employer] [place] to go fishing when he experienced some nausea and some chest tightness on the left side of his chest. He has a known history of coronary disease for which she has had stents placed. His most recent stent was placed in March 2021. He is compliant with his home medications. He states the episode that he experienced was very similar to his previous episodes when he received stents. Given that his symptoms were similar he took a nitroglycerin tablet and began to feel better with resolution of his nausea and chest pain. He came home and had no further symptoms until this morning when his nausea and chest pain started up again. He called Dr. Wilkinson's office and they recommended coming to the emergency department. He was given nitroglycerin in the emergency department and his symptoms have subsequently resolved. He is currently asymptomatic. His vital signs are stable. His CBC is unremarkable. His coags are normal. His BMP is unremarkable. His initial troponin was 6. His chest x-ray showed no acute processes. His EKG shows some mild J-point elevation in V2 and V3. I do not have a previous to compare. As noted above he had his most recent stent in 03/2021 at which time he received a distal RCA ALON. His ejection fraction at that time was 45%. The case was discussed by the emergency department physician with Dr. Wilkinson and he recommended admission for left heart catheterization. Left heart catheterization was performed on the afternoon of 09/23/2021 he was found to have no new disease and patent stents from previous placement. His EF by LV gram was 50%. Recommendations are for continued medical management. He was discharged home in the afternoon of 09/23/2021 in stable condition Discharge diagnoses: Noncardiac chest pain Ischemic cardiomyopathy Hyperlipidemia Obesity Weight / BMI Weight Weight: 104.326 kg Body Mass Index (BMI) 34.0 ABG / Lab / Microbiology Data Result Diagrams: 09/23/21 10:06 09/23/21 10:06 Laboratory: Laboratory Results - last 24 hr 09/23/21 10:06: WBC 6.7, RBC 5.31, Hgb 16.2, Hct 47.7, MCV 89.8, MCH 30.5, MCHC 34.0, RDW Std Deviation 40.7, RDW Coeff of Gilson 12.4, Plt Count 207, MPV 9.5, Immature Gran % (Auto) 2.700 H, Neut % (Auto) 60.4, Lymph % (Auto) 22.6, [place] % (Auto) 10.0, Eos % (Auto) 3.3, Baso % (Auto) 1.0, Absolute Neuts (auto) 4.1, Absolute Lymphs (auto) 1.52, Nucleated RBC % 0 09/23/21 10:06: Sodium 140, Potassium 4.4, Chloride 106, Carbon Dioxide 29.0, Anion Gap 5, BUN 9, Creatinine 0.88, Estim Creat Clear Calc 98.19, Est GFR (MDR D) Af Amer 116, Est GFR (MDRD) Non-Af 96, BUN/Creatinine Ratio 10.2, Glucose 103, Calcium 9.1, Troponin I High Sens 6 09/23/21 10:06: PT 12.9, INR 1.0 12/10/21 12:00: Troponin I High Sens 3 Microbiology: Microbiology 09/23/21 10:40 Nasal Secretion SARS-CoV-2 Antigen (Rapid) - Final Radiography Diagnostic Testing: Radiology Impression Chest X-Ray 09/23/21 10:05 IMPRESSION: Normal x-ray examination of the chest. Electronically Signed: Humberto Deutsch MD at 10:25 EST , Service support , D/C Instructions Discharge Diet: Low fat / Low cholesterol Discharge Activity: Return to Normal Activity (Avoid heavy lifting with right up per extremity for the next 48 hours) Return to work on: 09/26/21 Meaningful Use Info Meaningful Use Diagnoses (Choose all that apply): None applicable Discharge Plan Admission Admit Date/Time: 09/23/21 11:34 Primary Reason for Your Visit: Chest pain Attending Provider: Ramya Barnes Primary Care Provider: Saravanan Chavarria Discharge Orders/Prescriptions Prescriptions: Continued atorvastatin 40 mg tablet 40 mg PO QHS Qty: 1 RF: 3 nitroglycerin 0.4 mg Tablet, Sublingual 0.4 mg sublingual Q5M PRN (Reason: Cardiac/Chest Pain) Qty: 90 RF: 3 aspirin 81 mg Tablet,Chewable 81 mg PO DAILY@0800 Qty: 0 RF: 0 clopidogrel 75 mg tablet 75 mg PO DAILY Qty: 90 RF: 3 metoprolol succinate 25 mg tablet extended release 24 hr 25 mg PO DAILY Qty: 90 RF: 3 Referrals / Follow Up: Fernando Wilkinson MD [STAFF PHYSICIAN] - See Referral Note (As directed by cardiology) Saravanan Chavarria MD [Primary Care Provider] - See Referral Note (As directed) Disposition Disposition (needs filled in before D/C Order can be placed): Home, Self Care Charges/Coding Visit Charges Inpatient E&M: 52698 Disch Hosp
== END 2021-09-23 14:45 | disposition home or self-care (01) ==
LOC: ED 11:15 → PCU 11:46 → CLSP 14:30
PROVIDERS: Emergency Provider Emergency Medicine; PCP Family Medicine; Visit Provider Internal Medicine Cardiovascular Disease
DX: I25.110 Atherosclerotic heart disease of native coronary artery with unstable angina pectoris (principal); I25.2 Old myocardial infarction; I25.5 Ischemic cardiomyopathy; E78.5 Hyperlipidemia, unspecified; G47.33 Obstructive sleep apnea (adult) (pediatric); G62.9 Polyneuropathy, unspecified; Z95.5 Presence of coronary angioplasty implant and graft; Z79.82 Long term (current) use of aspirin; Z79.899 Other long term (current) drug therapy; Z87.891 Personal history of nicotine dependence
CPT/HCPCS: 71045; 80048; 84484; 85025; 85610; 87426; 93005; 93458; 99152; 99153; 99285; J7040; A4216; C1769; C1894; Q9967

== ENCOUNTER → 2021-10-05 08:19 | Outpatient (CLI) | payer OTHER, SELFPAY ==
[2021-10-05 09:45] LABS: AST(SGOT) 19 U/L (15-37); Alanine Aminotransfer ALT/SGPT 44 U/L (16-61); Alkaline Phosphatase 63 U/L (45-117); Bilirubin, Direct 0.08 mg/dL (0.00-0.30); Cholesterol 189 mg/dL (200); Globulin 3.5 g/dL (2.2-4.2); High Density Lipoprotein 40 mg/dL; Protein, Total 7.5 g/dL (6.4-8.2); Triglycerides 221 mg/dL; Very Low Density Lipoprotein 44 mg/dL (5-40)
== END ==
PROVIDERS: PCP Family Medicine; Visit Provider Internal Medicine Cardiovascular Disease
DX: E78.00 Pure hypercholesterolemia, unspecified (principal)
CPT/HCPCS: 36415; 80061; 80076

== ENCOUNTER → 2023-05-08 | Outpatient (CLI) | payer OTHER, SELFPAY ==
[2023-05-08 12:01] LABS: AST(SGOT) 21 U/L (15-37); Alanine Aminotransfer ALT/SGPT 36 U/L (16-61); Alkaline Phosphatase 58 U/L (45-117); Bilirubin, Direct 0.17 mg/dL (0.00-0.30); Cholesterol 195 mg/dL (200); Globulin 3.6 g/dL (2.2-4.2); High Density Lipoprotein 36 mg/dL; Protein, Total 7.6 g/dL (6.4-8.2); Triglycerides 155 mg/dL; Very Low Density Lipoprotein 31 mg/dL (5-40)
== END | disposition home or self-care (01) ==
PROVIDERS: PCP Family Medicine; Referring Provider Physician Assistant Medical; Visit Provider Physician Assistant Medical
DX: E78.00 Pure hypercholesterolemia, unspecified (principal)
CPT/HCPCS: 36415; 80061; 80076

== ENCOUNTER → 2024-02-26 | Outpatient (CLI) | payer OTHER, SELFPAY ==
[2024-02-26 07:50] LABS: AST(SGOT) 25 U/L (15-37); Alanine Aminotransfer ALT/SGPT 31 U/L (16-61); Albumin, Serum 3.7 g/dL (3.2-5.0); Alkaline Phosphatase 52 U/L (45-117); Bilirubin, Direct 0.15 mg/dL (0.00-0.30); Cholesterol 163 mg/dL (200); High Density Lipoprotein 31 mg/dL; Protein, Total 6.7 g/dL (6.4-8.2); Triglycerides 313 mg/dL; Very Low Density Lipoprotein 63 mg/dL (5-40)
--- NOTE | 2024-02-26 14:39 | STRESSREP_ITS ---
Stress Test Report Date: 02/26/2024 Procedure: Exercise tolerance test/imaging study Indications: Coronary artery disease Consent: Per the patient Procedure: The patient exercised on a Brian protocol for 9 minutes and 15 seconds achieving a peak heart rate of 133 bpm (80% predicted maximal heart rate) with a peak blood pressure 160/72 mmHg and a peak MET capacity of 10.8 METs. The baseline ECG demonstrated sinus rhythm with inferior ST T wave depressions. The peak exercise ECG demonstrated no diagnostic changes secondary to baseline abnormalities. Frequent PVCs noted during exercise and in recovery. The functional capacity was considered very good. There was no complaint of chest discomfort during exercise or recovery. The examination was discontinued secondary to dyspnea. The patient was injected with 14.2 mCi of technetium 99m Cardiolite and subsequently rest SPECT Cardiolite nuclear imaging was obtained in the horizontal long, vertical long, and short axis views. Post-exercise, the patient was injected with 45.0 mCi of technetium 99m Cardiolite and subsequently stress SPECT Cardiolite nuclear imaging was obtained in the horizontal long, vertical long, and short axis views. A gated Cardiolite study at peak stress was obtained. Rest and stress SPECT Cardiolite nuclear imaging status post realignment, normalization, and attenuation correction, demonstrates the appearance of relative uniform tracer uptake and myocardial perfusion appearing within normal limits. There is end systolic thickening and brightening. The gated Cardiolite study demonstrates myocardial thickening and inward wall motion. The reported LVEF is 45%. Impression: 1. Technically adequate exercise tolerance test 2. Peak exercise ECG nondiagnostic secondary to baseline abnormalities 3. Frequent PVCs during exercise and in recovery 4. Rest and stress SPECT Cardiolite nuclear imaging demonstrate a fixed inferior defect suggestive of prior infarct. 5. The gated Cardiolite study reports an LVEF of 45%. Inferior hypokinesis. This note was generated with [employer] software. It may contain incorrect words, spelling, and punctuation that were not noted in checking the note before signing.
== END | disposition home or self-care (01) ==
PROVIDERS: PCP Family Medicine; Referring Provider Physician Assistant Medical; Visit Provider Physician Assistant Medical
DX: I25.10 Atherosclerotic heart disease of native coronary artery without angina pectoris (principal); Z95.5 Presence of coronary angioplasty implant and graft; R94.2 Abnormal results of pulmonary function studies; G47.33 Obstructive sleep apnea (adult) (pediatric)
CPT/HCPCS: 36415; 78452; 80061; 80076; 93017; A9500

== ENCOUNTER → 2024-07-24 | Outpatient (CLI) | payer OTHER, SELFPAY | END | disposition home or self-care (01) | PROVIDERS: PCP Family Medicine; Referring Provider Nurse Practitioner Acute Care; Visit Provider Nurse Practitioner Acute Care | DX: G47.33 Obstructive sleep apnea (adult) (pediatric) (principal) | CPT/HCPCS: 95811 ==

== ENCOUNTER → 2025-06-25 | Outpatient (CLI) | payer OTHER, SELFPAY ==
[2025-06-25 11:58] LABS: Cholesterol 159 mg/dL (<=200); Low Density Lipoprotein Calc. 83 mg/dL; Triglycerides 240 mg/dL; Very Low Density Lipoprotein 48 mg/dL (5-40); cholesterol:hdl ratio screen 5.74
[2025-06-25 12:01] LABS: AST(SGOT) 29 U/L (<=37); Alanine Aminotransfer ALT/SGPT 28 U/L (<=46); Albumin, Serum 4.1 g/dL (3.5-5.0); Alkaline Phosphatase 61 U/L (40-129); Bilirubin, Direct 0.25 mg/dL (0.00-0.30); Globulin 2.6 g/dL (2.2-4.2)
== END | disposition home or self-care (01) ==
PROVIDERS: PCP Family Medicine; Referring Provider Internal Medicine Cardiovascular Disease; Visit Provider Internal Medicine Cardiovascular Disease
DX: I25.10 Atherosclerotic heart disease of native coronary artery without angina pectoris (principal)
CPT/HCPCS: 36415; 80061; 80076